=== PATIENT | female | born 1970 | race Caucasian/White ===

== ENCOUNTER 2016-08-01 10:15 | Emergency (ER) | payer SELFPAY ==
[~2016-08-01] VITALS: Ht 165.1 cm; Wt 58.0 kg
[~2016-08-01 10:15] MED LIST: ACYC400T PO; FLUO20TA20 PO; GLUCTES27 XX; PROZ20CA11 PO; SERO100T PO
[2016-08-01 10:17] VITALS: BP 174/99; PULSE 106; RESP 17; TEMP 97.7; O2SAT 95
--- NOTE | 2016-08-01 10:30 | PD ---
HPI Chief Complaint: Psychiatric Symptoms Time Seen by Provider: 10:24 Travel History International Travel<30 days: No Contact w/Intl Traveler<30days: No Traveled to known affect area: No History of Present Illness HPI 45-year-old female with reported history of PTSD, anxiety, depression, here for evaluation voluntarily for suicidal ideation. The patient reports that she is supposed to be on Seroquel and a few other medications, however she has not been on these medications for over a year. She admits to drinking a small amount of alcohol, smoking a small amount of marijuana, and smoking a small amount of crack. No IVDU. No physical complaints. She does not have an actual suicide plan. PFSH Past Medical History Arthritis: Yes (KNEES & HIPS) Asthma: No Autoimmune Disease: No Blood Disorders: No Anxiety: Yes Depression: Yes Heart Rhythm Problems: No (Stress test @ 40 yo found no problems) Cancer: No Cardiovascular Problems: No High Cholesterol: No Chemotherapy: No Chest Pain: No Congestive Heart Failure: No COPD: No Cerebrovascular Accident: No Diabetes: No Diminished Hearing: No Endocrine: No Gastrointestinal Disorders: Yes GERD: No Glaucoma: No Genitourinary: No Headaches: No Hepatitis: Yes (HEP C) Hiatal Hernia: No Immune Disorder: No Kidney Stones: No Musculoskeletal: Yes Neurologic: Yes Psychiatric: Yes Reproductive: No Respiratory: No Migraines: No Myocardial Infarction: No Radiation Therapy: No Renal Failure: No Seizures: No Sickle Cell Disease: No Sleep Apnea: No Thyroid Disease: No Ulcer: No : 2 Para: 2 Past Surgical History Abdominal Surgery: No AICD: No Appendectomy: No Arteriovenous Shunt: No Body Medical Devices: POSSIBLY MYRINGOTOMY TUBE LEFT EAR Cardiac Surgery: No Cholecystectomy: No Ear Surgery: Yes (PATRICIA. MYRINGOTOMY WITH TUBES) Endocrine Surgery: No Eye Surgery: No Genitourinary Surgery: Yes (I & D BUTTOCKS ABCESS--MRSA) Gynecologic Surgery: No Insulin Pump: No Joint Replacement: No Neurologic Surgery: No Oral Surgery: Yes (ADNOIDECTOMY) Pacemaker: No Thoracic Surgery: No Other Surgery: Yes (ADNOIDS AND TUBES IN EARS) Social History Alcohol Use: Yes (4 beers per day) Tobacco Use: Yes (05/03 ppd) Substance Use: Yes Allergies-Medications (Allergen,Severity, Reaction): Coded Allergies: Amoxicillin (Verified Allergy, Severe, RASH, 08/01/16) Reported Meds & Prescriptions Reported Meds & Active Scripts Active Acyclovir 400 mg (Acyclovir) 400 Mg Tab 1 Tab PO BID Reported Prozac (Fluoxetine HCl) 20 Mg Cap 20 Mg PO DAILY Seroquel 100 mg (Quetiapine Fumarate) 100 Mg Tab 50 Mg PO DAILY Fluoxetine Hcl (Fluoxetine HCl) 20MG Cap 20 Mg PO DAILY Review of Systems Except as stated in HPI: all other systems reviewed are Neg Physical Exam Narrative GENERAL: Well-developed, underweight, awake, alert, no acute distress. SKIN: Focused skin assessment warm/dry. HEAD: Atraumatic. Normocephalic. EYES: Pupils equal and round. No scleral icterus. No injection or drainage. ENT: Mucous membranes pink and dry. NECK: Trachea midline. No JVD. No nuchal rigidity. CARDIOVASCULAR: Regular rate and rhythm. RESPIRATORY: No accessory muscle use. Clear to auscultation. Breath sounds equal bilaterally. GASTROINTESTINAL: Abdomen soft, non-tender, nondistended. MUSCULOSKELETAL: No obvious deformities. No clubbing. No cyanosis. No edema. NEUROLOGICAL: Awake and alert. No obvious cranial nerve deficits. Motor grossly within normal limits. Normal speech. PSYCHIATRIC: Pressured speech. Data Data Last Documented VS Vital Signs Date Time Temp Pulse Resp B/P Pulse Ox O2 Delivery O2 Flow Rate FiO2 08/01/16 10:31 99.3 76 18 146/72 97 Orders Complete Blood Count With Diff (08/01/16 10:34) Comprehensive Metabolic Panel (08/01/16 10:34) Urinalysis - C+S If Indicated (08/01/16 10:34) Psych Screen (08/01/16 10:34) Drug Screen, Random Urine (08/01/16 10:34) Alcohol (Ethanol) (08/01/16 10:34) Salicylates (Aspirin) (08/01/16 10:34) Tylenol (Acetaminophen) (08/01/16 10:34) Diet Regular Basic (08/01/16 Lunch) Labs Laboratory Tests Test 08/01/16 08/01/16 10:55 11:15 White Blood Count 4.4 TH/MM3 Red Blood Count 3.66 MIL/MM3 Hemoglobin 11.8 GM/DL Hematocrit 34.4 % Mean Corpuscular Volume 93.9 FL Mean Corpuscular Hemoglobin 32.4 PG Mean Corpuscular Hemoglobin 34.5 % Concent Red Cell Distribution Width 13.0 % Platelet Count 52 TH/MM3 Mean Platelet Volume 10.1 FL Neutrophils (%) (Auto) 48.5 % Lymphocytes (%) (Auto) 36.6 % Monocytes (%) (Auto) 12.2 % Eosinophils (%) (Auto) 1.8 % Basophils (%) (Auto) 0.9 % Neutrophils # (Auto) 2.1 TH/MM3 Lymphocytes # (Auto) 1.6 TH/MM3 Monocytes # (Auto) 0.5 TH/MM3 Eosinophils # (Auto) 0.1 TH/MM3 Basophils # (Auto) 0.0 TH/MM3 CBC Comment AUTO DIFF Differential Comment AUTO DIFF CONFIRMED Platelet Estimate LOW Platelet Morphology Comment NORMAL Sodium Level 138 MEQ/L Potassium Level 3.5 MEQ/L Chloride Level 105 MEQ/L Carbon Dioxide Level 24.6 MEQ/L Anion Gap 8 MEQ/L Blood Urea Nitrogen 7 MG/DL Creatinine 0.59 MG/DL Estimat Glomerular Filtration 109 ML/MIN Rate Random Glucose 86 MG/DL Calcium Level 8.4 MG/DL Total Bilirubin 2.2 MG/DL Aspartate Amino Transf 320 U/L (AST/SGOT) Alanine Aminotransferase 91 U/L (ALT/SGPT) Alkaline Phosphatase 87 U/L Total Protein 8.1 GM/DL Albumin 3.1 GM/DL Salicylates Level LESS THAN 1.7 MG/DL Acetaminophen Level LESS THAN 2.0 MCG/ML Ethyl Alcohol Level LESS THAN 3 MG/DL Urine Color DARK-YELLOW Urine Turbidity HAZY Urine pH 5.5 Urine Specific [place] 1.024 Urine Protein 30 mg/dL Urine Glucose (UA) NEG mg/dL Urine Ketones 10 mg/dL Urine Occult Blood NEG Urine Nitrite NEG Urine Bilirubin NEG Urine Urobilinogen GREATER THAN 12.0 MG/DL Urine Leukocyte Esterase LARGE Urine RBC 2 /hpf Urine WBC 4 /hpf Urine Squamous Epithelial 4 /hpf Cells Urine Bacteria FEW /hpf Urine Granular Casts 7 /lpf Urine Mucus FEW /lpf Microscopic Urinalysis Comment CULT NOT INDICATED MDM Medical Decision Making Medical Screen Exam Complete: Yes Emergency Medical Condition: Yes Differential Diagnosis Acute psychosis, suicidal ideation, drug induced mood disorder Narrative Course Although the patient presented to the emergency department voluntarily, I have placed her under a Gran[place] Act as I deemed the patient to be unsafe to leave the hospital at this time. She is amenable to this. She understands the circumstances of a Granados act. Vital signs reviewed. CBC shows to be BC 4.4, hemoglobin 11.8, hematocrit 34.4, platelets 52. Thrombocytopenia is likely secondary to alcohol abuse. CMP is remarkable for TB bili 2.2, AST 320, ALT 91 which again is likely secondary to alcohol abuse. Urine shows dark/hazy urine, 30 protein, 10 ketones, greater than 12 urobilinogen, large leukocyte esterase, few bacteria, negative nitrites, not suggestive of UTI. Tylenol, alcohol, and salicylate levels are negative. The patient is medically cleared for psychiatric evaluation and disposition by them. Diagnosis Primary Impression: Suicidal ideation Additional Impressions: Thrombocytopenia Transaminitis Ilya Veras MD Aug 01, 2016 10:30 Ilya Veras MD Aug 01, 2016 10:30
[2016-08-01 10:31] VITALS: BP 146/72; PULSE 76; RESP 18; TEMP 99.3; O2SAT 97
[2016-08-01 11:14] LABS: AUTOMATED NEUTROPHIL # 2.1 TH/MM3 (1.8-7.7); BASOPHIL % 0.9 % (0.0-2.0); EOSINOPHIL # 0.1 TH/MM3 (0-0.4); EOSINOPHIL % 1.8 % (0.0-4.0); HEMATOCRIT 34.4 % (35.0-46.0); LYMPH % 36.6 % (9.0-44.0); LYMPHOCYTE # 1.6 TH/MM3 (1.0-4.8); MEAN CELL VOLUME 93.9 FL (80.0-100.0); MEAN CORPUSCULAR HEMOGLOBIN 32.4 PG (27.0-34.0); MEAN CORPUSCULAR HGB CONC 34.5 % (32.0-36.0); MONO % 12.2 % (0.0-8.0); NEUT % 48.5 % (16.0-70.0); PLATELET COUNT 52 TH/MM3 (150-450); RED BLOOD COUNT 3.66 MIL/MM3 (4.00-5.30); WHITE BLOOD COUNT 4.4 TH/MM3 (4.0-11.0)
[2016-08-01 11:18] LABS: HEMO FLAGS AUTO DIFF
[2016-08-01 11:36] LABS: BACTERIA, URINE FEW /hpf; BLOOD, URINE NEG (NEG); COMMENT (UR) CULT NOT INDICATED; CULTURE IF INDICATED CULT NOT INDICATED; GLUCOSE,URINE NEG (NEG); GRANULAR CAST, URINE 7 /lpf; KETONE, URINE 10 mg/dL (NEG); MUCUS URINE FEW /lpf (OCC); NITRITE,URINE NEG (NEG); PH, URINE 5.5 (5.0-8.5); SQUAMOUS EPITHELIAL CELL URINE 4 /hpf (0-5); URINE COLOR DARK-YELLOW (YELLW/STRAW)
[2016-08-01 11:37] LABS: ALT (GPT) 91 U/L (10-53); ANION GAP 8 MEQ/L (5-15); AST (GOT) 320 U/L (15-37); BICARBONATE 24.6 MEQ/L (21.0-32.0); BLOOD UREA NITROGEN 7 MG/DL (7-18); CHLORIDE 105 MEQ/L (98-107); GLOMERULAR FILTRATION RATE 109 ML/MIN (>89); POTASSIUM 3.5 MEQ/L (3.5-5.1); SODIUM (NA) 138 MEQ/L (136-145)
[2016-08-01 11:43] LABS: ACETAMINOPHEN LESS THAN 2.0 MCG/ML (10.0-30.0); ALKALINE PHOSPHATASE 87 U/L (45-117); TOTAL BILIRUBIN ADULT 2.2 MG/DL (0.2-1.0)
[2016-08-01 11:44] LABS: PLATELET ESTIMATE SMEAR LOW (NORMAL); PLATELET MORPHOLOGY NORMAL (NORMAL); SCAN/DIFF AUTO DIFF CONFIRMED
[2016-08-01 11:53] LABS: AMPHETAMINE, URINE NEG (NEG); BARBITURATES, URINE NEG (NEG); COCAINE, URINE POS (NEG)
[2016-08-02] MEDS ORDERED: ACETAMINOPHEN 500 MG CPLT PO ONE
[2016-08-02 00:56] VITALS: BP 166/88; PULSE 85; RESP 16; O2SAT 96
[2016-08-02 09:30] VITALS: BP 127/73; PULSE 69; RESP 18; TEMP 98.3; O2SAT 95
[2016-08-02 11:48] VITALS: BP 127/73; PULSE 69; RESP 18; O2SAT 95
[2016-08-02] MEDS ORDERED: IBUPROFEN 800 MG TAB PO ONE (12:00)
--- NOTE | 2016-08-02 14:20 | PD ---
History of Present Illness Chief Complaint: Psychiatric Symptoms Time Seen by Provider: 12:30 Travel History International Travel<30 Days: No Contact w/Intl Traveler<30days: No Known affected area: No Legal Status Legal Status: Gran[place] Act Gran[place] Act Signed By: DR YEH History of Present Illness: This is a 45-year-old female who was abusing illicit drugs yesterday and was sitting on a bridge. She was [place] acted for reported suicidal ideation and plan. At the present time the patient is calm and pleasant and cooperative. She does admit to cocaine use and marijuana use. She denies any recent heroin use. She does admit to sitting on the bridge but denies being suicidal. Certainly at this time she denies any suicidal ideation, homicidal ideation, psychotic symptoms, cognitive impairments, etc. She is calm and cooperative. She would like to return home and verbally contracts for safety. She does not meet Granados act criteria any longer and she does not meet inpatient psychiatric criteria. PFSH Past Medical History Arthritis: Yes (KNEES & HIPS) Asthma: No Autoimmune Disease: No Blood Disorders: No Anxiety: Yes Depression: Yes Cancer: No Cardiovascular Problems: No High Cholesterol: No Chemotherapy: No Chest Pain: No Congestive Heart Failure: No COPD: No Cerebrovascular Accident: No Diabetes: No Diminished Hearing: No Endocrine: No Gastrointestinal Disorders: Yes GERD: No Glaucoma: No Genitourinary: No Headaches: No Hepatitis: Yes (HEP C) Hiatal Hernia: No Immune Disorder: No Implanted Vascular Access Dvce: Yes Kidney Stones: No Musculoskeletal: Yes Neurologic: Yes Psychiatric: Yes (PTSD) Reproductive: No Respiratory: No Migraines: No Myocardial Infarction: No Radiation Therapy: No Renal Failure: No Seizures: No Sickle Cell Disease: No Sleep Apnea: No Thyroid Disease: No Ulcer: No Tetanus Vaccination: Unknown Influenza Vaccination: No ?: Not : 2 Para: 1 Miscarriage: 1 Past Surgical History Abdominal Surgery: No AICD: No Appendectomy: No Body Medical Devices: POSSIBLY MYRINGOTOMY TUBE LEFT EAR Cardiac Surgery: No Cholecystectomy: No Ear Surgery: Yes (PATRICIA. MYRINGOTOMY WITH TUBES) Endocrine Surgery: No Eye Surgery: No Genitourinary Surgery: Yes (I & D BUTTOCKS ABCESS--MRSA) Gynecologic Surgery: No Insulin Pump: No Joint Replacement: No Neurologic Surgery: No Oral Surgery: Yes (ADNOIDECTOMY) Pacemaker: No Thoracic Surgery: No Tonsillectomy: Yes Other Surgery: Yes (ADNOIDS AND TUBES IN EARS) Psychiatric History Psychiatric History Hx Psychiatric Treatment: HX OF ANXIETY, DEPRESSION, PTSD AND MULTIPLE PERSONALITY D/O History of Inpatient Treatment: Yes Social History Hx Alcohol Use: Yes (4 beers per day, ) Hx Tobacco Use: Yes (/ ppd) Hx Substance Use: Yes (coccaine, marijuana) Substance Use Type: Alcohol, Crack, Marijuana, Benzos (Valium,Xanax), Cocaine Hx of Substance Use Treatment: Yes Allergies-Medications (Allergen,Severity, Reaction): Coded Allergies: Amoxicillin (Verified Allergy, Severe, RASH, 08/01/16) Reported Meds & Prescriptions Reported Meds & Active Scripts Active Acyclovir 400 mg (Acyclovir) 400 Mg Tab 1 Tab PO BID Reported Prozac (Fluoxetine HCl) 20 Mg Cap 20 Mg PO DAILY Seroquel 100 mg (Quetiapine Fumarate) 100 Mg Tab 50 Mg PO DAILY Fluoxetine Hcl (Fluoxetine HCl) 20MG Cap 20 Mg PO DAILY Review of Systems ROS Limitations: Clinical Condition Except as stated in HPI: all other systems reviewed are Neg Exam Exam Limitations: Clinical Condition Alert: Yes [place]: Person, Place, Date, Situation Mood: Calm Affect: Appropriate Speech: Clear, Logical Eye Contact: Normal Memory Intact: Immediate, Recent, Remote Insight/Judgement Impaired but adequate MDM Medical Decision Making Medical Record Reviewed: Yes Assessment/Plan Patient being discharged home. Roberta boyd lifted. Follow up is [facility] at [facility]. Orders Acetaminophen (Tylenol) (08/02/16 00:00) Ibuprofen (Motrin) (08/02/16 12:00) Results Vital Signs Date Time Temp Pulse Resp B/P Pulse Ox O2 Delivery O2 Flow Rate FiO2 08/02/16 11:48 69 18 127/73 95 Room Air 08/02/16 09:30 98.3 69 18 127/73 95 Room Air 08/02/16 00:56 85 16 166/88 96 Diagnosis Primary Impression: Adjustment disorder with mixed disturbance of emotions and con... Additional Impressions: Suicidal ideation Transaminitis Thrombocytopenia Referrals: [facility] (Out patient) as needed [facility] as needed Mental Health and Substance Abuse Departure Forms: Tests/Procedures Patient Instructions: General Instructions, Mood Disorders (ED), Medical Clearance for Psychiatric Care (ED) Additional Instructions: DX: Adjustment Disorder with Mixed Disturbance of Emotions and Conduct Please return to ED if symptoms worsen. Disposition: 01 DISCHARGE HOME Condition: Stable Problem Qualifiers Tej Barr MD Aug 02, 2016 14:20
== END 2016-08-02 13:18 | disposition home or self-care (01) ==
LOC: NEPA 10:15 → NEPJ 08-02 13:18
DX: F43.25 Adjustment disorder with mixed disturbance of emotions and conduct (principal); R74.0 Nonspecific elevation of levels of transaminase and lactic acid dehydrogenase [LDH]; D69.6 Thrombocytopenia, unspecified; F43.10 Post-traumatic stress disorder, unspecified; Z79.899 Other long term (current) drug therapy
CPT/HCPCS: 80053; 80307; 81001; 85025; 99285

== ENCOUNTER 2016-10-23 05:37 | Emergency (ER) | payer SELFPAY ==
[~2016-10-23] VITALS: Ht 165.1 cm; Wt 55.0 kg
[~2016-10-23 05:37] MED LIST changes: -GLUCTES27 XX
[2016-10-23 05:39] VITALS: BP 183/110; PULSE 80; RESP 16; TEMP 98.4; O2SAT 98
[2016-10-23] MEDS ORDERED: SODIUM CHLOR 0.9% 1000 ML INJ 1,000 ML IV ONE (06:00)
[2016-10-23] MEDS ORDERED: MORPHINE SULFATE 4 MG/ML INJ IV PUSH ONE (06:00)
[2016-10-23] MEDS ORDERED: ONDANSETRON HCL 4 MG/2 ML VIAL IVP ONE (06:00)
--- NOTE | 2016-10-23 06:01 | PD ---
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 The patient states she had unprotected sex 5 days ago and now pelvic/suprapubic pain. The patient denies any dysuria, frequency, urgency, vaginal discharge, or vaginal bleeding. The patient's last menstrual cycle was 5 years ago. The patient states last time she had similar symptoms she was diagnosed with PID. The patient's last bowel movement was earlier today, normal , denies any history of diverticulitis. She does complain of mild nausea without any vomiting. She denies any history of previous abdominal surgeries. Symptoms are moderate without any alleviating or exacerbating factors. PFSH Past Medical History Arthritis: Yes (KNEES & HIPS) Asthma: No Autoimmune Disease: No Blood Disorders: No Anxiety: Yes Depression: Yes Cancer: No Cardiovascular Problems: No High Cholesterol: No Chemotherapy: No Chest Pain: No Congestive Heart Failure: No COPD: No Cerebrovascular Accident: No Diabetes: No Diminished Hearing: No Endocrine: No Gastrointestinal Disorders: Yes GERD: No Glaucoma: No Genitourinary: No Headaches: No Hepatitis: Yes (HEP C) Hiatal Hernia: No Immune Disorder: No Implanted Vascular Access Dvce: Yes Kidney Stones: No Musculoskeletal: Yes Neurologic: Yes Psychiatric: Yes (PTSD) Reproductive: No Respiratory: No Migraines: No Myocardial Infarction: No Radiation Therapy: No Renal Failure: No Seizures: No Sickle Cell Disease: No Sleep Apnea: No Thyroid Disease: No Ulcer: No ?: Not LMP: IRREG : 2 Para: 1 Miscarriage: 1 Past Surgical History Abdominal Surgery: No AICD: No Appendectomy: No Body Medical Devices: POSSIBLY MYRINGOTOMY TUBE LEFT EAR Cardiac Surgery: No Cholecystectomy: No Ear Surgery: Yes (PATRICIA. MYRINGOTOMY WITH TUBES) Endocrine Surgery: No Eye Surgery: No Genitourinary Surgery: Yes (I & D BUTTOCKS ABCESS--MRSA) Gynecologic Surgery: No Insulin Pump: No Joint Replacement: No Neurologic Surgery: No Oral Surgery: Yes (ADNOIDECTOMY) Pacemaker: No Thoracic Surgery: No Tonsillectomy: Yes Other Surgery: Yes (ADNOIDS AND TUBES IN EARS) Social History Alcohol Use: Yes (4 beers per day, ) Tobacco Use: Yes (1/2 ppd) Substance Use: Yes (coccaine, marijuana) Allergies-Medications (Allergen,Severity, Reaction): Coded Allergies: Amoxicillin (Verified Allergy, Severe, RASH, 10/23/16) Reported Meds & Prescriptions Reported Meds & Active Scripts Active No Active Prescriptions or Reported Medications Review of Systems Except as stated in HPI: all other systems reviewed are Neg General / Constitutional: No: Fever Cardiovascular: No: Chest Pain or Discomfort Respiratory: No: Shortness of Breath Gastrointestinal: Positive: Nausea, Vomiting, No: Diarrhea, Abdominal Pain Genitourinary: Positive: Pelvic Pain, No: Urgency, Frequency, Dysuria, Hematuria, Discharge, Vaginal Bleeding Skin: No Rash, No Itching Physical Exam Narrative GENERAL: Awake, alert, nontoxic-appearing 45 year-old female who appears her stated age and is in no acute respiratory distress. SKIN: Focused skin assessment warm/dry. HEAD: Atraumatic. Normocephalic. EYES: No injection or drainage. ENT: No nasal bleeding or discharge. Mucous membranes pink and moist. NECK: Trachea midline. No JVD. GASTROINTESTINAL: Abdomen soft, mild suprapubic tenderness. No rebound tenderness. Back: No CVA tenderness. Genitourinary: The exam was performed in the presence of a female nurse. External examination reveals no rashes or lesions. Speculum examination reveals scant white discharge in vaginal vault. Cervix is closed. No cervical motion tenderness. No adnexal tenderness. MUSCULOSKELETAL: No obvious deformities. No clubbing. No cyanosis. No edema. NEUROLOGICAL: Awake and alert. No obvious cranial nerve deficits. Motor grossly within normal limits. Normal speech. PSYCHIATRIC: Appropriate mood and affect; insight and judgment normal. Data Data Last Documented VS Vital Signs Date Time Temp Pulse Resp B/P Pulse Ox O2 Delivery O2 Flow Rate FiO2 10/23/16 05:39 98.4 80 16 183/110 98 Room Air Orders Complete Blood Count With Diff (10/23/16 05:55) Comprehensive Metabolic Panel (10/23/16 05:55) Gc And Chlamydia Pcr (10/23/16 05:55) Wet Prep Profile (10/23/16 05:55) Urinalysis - C+S If Indicated (10/23/16 05:55) Ondansetron Inj (Zofran Inj) (10/23/16 06:00) Ed Urine Pregnancytest Poc (10/23/16 05:55) Morphine Inj (Morphine Inj) (10/23/16 06:00) Sodium Chlor 0.9% 1000 Ml Inj (Ns 1000 M (10/23/16 06:00) Ct Abd/Pel W/O Iv Contrast (10/23/16 ) Labs Laboratory Tests Test 10/23/16 10/23/16 10/23/16 06:03 06:05 06:20 White Blood Count 4.1 TH/MM3 Red Blood Count 3.79 MIL/MM3 Hemoglobin 12.1 GM/DL Hematocrit 35.6 % Mean Corpuscular Volume 94.0 FL Mean Corpuscular Hemoglobin 31.9 PG Mean Corpuscular Hemoglobin 34.0 % Concent Red Cell Distribution Width 14.2 % Platelet Count 78 TH/MM3 Mean Platelet Volume 8.7 FL Neutrophils (%) (Auto) 61.0 % Lymphocytes (%) (Auto) 27.2 % Monocytes (%) (Auto) 9.2 % Eosinophils (%) (Auto) 1.7 % Basophils (%) (Auto) 0.9 % Neutrophils # (Auto) 2.5 TH/MM3 Lymphocytes # (Auto) 1.1 TH/MM3 Monocytes # (Auto) 0.4 TH/MM3 Eosinophils # (Auto) 0.1 TH/MM3 Basophils # (Auto) 0.0 TH/MM3 CBC Comment AUTO DIFF Urine Color LIGHT-YELLOW Urine Turbidity CLEAR Urine pH 7.0 Urine Specific [place] 1.003 Urine Protein NEG mg/dL Urine Glucose (UA) NEG mg/dL Urine Ketones NEG mg/dL Urine Occult Blood NEG Urine Nitrite NEG Urine Bilirubin NEG Urine Urobilinogen LESS THAN 2.0 MG/DL Urine Leukocyte Esterase NEG Urine WBC LESS THAN 1 /hpf Urine Squamous Epithelial <1 /hpf Cells Urine Bacteria RARE /hpf Microscopic Urinalysis Comment CULT NOT INDICATED Clue Cells (Wet Prep) NONE SEEN Vaginal Trichomonas (Wet Prep) NONE SEEN Vaginal Yeast (Wet Prep) NONE SEEN MDM Medical Decision Making Medical Screen Exam Complete: Yes Emergency Medical Condition: Yes Medical Record Reviewed: Yes Interpretation(s) Laboratory Tests Test 10/23/16 10/23/16 10/23/16 06:03 06:05 06:20 White Blood Count 4.1 TH/MM3 Red Blood Count 3.79 MIL/MM3 Hemoglobin 12.1 GM/DL Hematocrit 35.6 % Mean Corpuscular Volume 94.0 FL Mean Corpuscular Hemoglobin 31.9 PG Mean Corpuscular Hemoglobin 34.0 % Concent Red Cell Distribution Width 14.2 % Platelet Count 78 TH/MM3 Mean Platelet Volume 8.7 FL Neutrophils (%) (Auto) 61.0 % Lymphocytes (%) (Auto) 27.2 % Monocytes (%) (Auto) 9.2 % Eosinophils (%) (Auto) 1.7 % Basophils (%) (Auto) 0.9 % Neutrophils # (Auto) 2.5 TH/MM3 Lymphocytes # (Auto) 1.1 TH/MM3 Monocytes # (Auto) 0.4 TH/MM3 Eosinophils # (Auto) 0.1 TH/MM3 Basophils # (Auto) 0.0 TH/MM3 CBC Comment AUTO DIFF Urine Color LIGHT-YELLOW Urine Turbidity CLEAR Urine pH 7.0 Urine Specific [place] 1.003 Urine Protein NEG mg/dL Urine Glucose (UA) NEG mg/dL Urine Ketones NEG mg/dL Urine Occult Blood NEG Urine Nitrite NEG Urine Bilirubin NEG Urine Urobilinogen LESS THAN 2.0 MG/DL Urine Leukocyte Esterase NEG Urine WBC LESS THAN 1 /hpf Urine Squamous Epithelial <1 /hpf Cells Urine Bacteria RARE /hpf Microscopic Urinalysis Comment CULT NOT INDICATED Clue Cells (Wet Prep) NONE SEEN Vaginal Trichomonas (Wet Prep) NONE SEEN Vaginal Yeast (Wet Prep) NONE SEEN Differential Diagnosis Differential diagnosis includes UTI, STI, cervicitis, PID, diverticulitis, atypical appendicitis. Narrative Course IV was established, labs were drawn and sent, and the patient was placed on cardiac telemetry monitoring and continuous pulse oximetry monitoring. Bedside UA test was obtained and UA was sent to lab. A pelvic exam was performed in the presence of a female nurse. The patient had a negative UA and negative wet prep, therefore, CT of the abdomen and pelvis was ordered. The patient was signed out at [address] results and lab results pending. Diagnosis Primary Impression: Pelvic pain in female Scripts No Active Prescriptions or Reported Meds Condition: Rolf Buck MD Oct 23, 2016 06:01
[2016-10-23 06:42] LABS: BACTERIA, URINE RARE /hpf; BLOOD, URINE NEG (NEG); COMMENT (UR) CULT NOT INDICATED; CULTURE IF INDICATED CULT NOT INDICATED; GLUCOSE,URINE NEG (NEG); KETONE, URINE NEG (NEG); NITRITE,URINE NEG (NEG); SQUAMOUS EPITHELIAL CELL URINE <1 /hpf (0-5); URINE COLOR LIGHT-YELLOW (YELLW/STRAW)
[2016-10-23 06:44] LABS: AUTOMATED NEUTROPHIL # 2.5 TH/MM3 (1.8-7.7); BASOPHIL % 0.9 % (0.0-2.0); EOSINOPHIL # 0.1 TH/MM3 (0-0.4); EOSINOPHIL % 1.7 % (0.0-4.0); HEMATOCRIT 35.6 % (35.0-46.0); LYMPH % 27.2 % (9.0-44.0); LYMPHOCYTE # 1.1 TH/MM3 (1.0-4.8); MEAN CORPUSCULAR HEMOGLOBIN 31.9 PG (27.0-34.0); MONO % 9.2 % (0.0-8.0); PLATELET COUNT 78 TH/MM3 (150-450); RED BLOOD COUNT 3.79 MIL/MM3 (4.00-5.30); RED CELL DISTRIBUTION WIDTH 14.2 % (11.6-17.2); WHITE BLOOD COUNT 4.1 TH/MM3 (4.0-11.0)
[2016-10-23 06:50] LABS: HEMO FLAGS AUTO DIFF
[2016-10-23 06:56] LABS: ALT (GPT) 40 U/L (10-53); ANION GAP 7 MEQ/L (5-15); AST (GOT) 93 U/L (15-37); BICARBONATE 30.7 MEQ/L (21.0-32.0); CHLORIDE 100 MEQ/L (98-107); GLOMERULAR FILTRATION RATE 135 ML/MIN (>89); SODIUM (NA) 138 MEQ/L (136-145)
[2016-10-23 06:58] LABS: ALKALINE PHOSPHATASE 88 U/L (45-117); BLOOD UREA NITROGEN 3 MG/DL (7-18); TOTAL BILIRUBIN ADULT 1.1 MG/DL (0.2-1.0)
[2016-10-23] MEDS ORDERED: POTASSIUM CHLORIDE 20 MEQ CONTROLLED RELEASE TAB PO ONE (07:15)
[2016-10-23 07:22] LABS: PLATELET ESTIMATE SMEAR LOW (NORMAL)
[2016-10-23 07:23] LABS: PLATELET MORPHOLOGY NORMAL (NORMAL); SCAN/DIFF AUTO DIFF CONFIRMED
--- NOTE | 2016-10-23 07:30 | RADRPT ---
EXAM DATE/TIME: 10/23/2016 07:13 [place] COMPARISON: No previous studies available for comparison. INDICATIONS : Bilateral lower quadrant pain for four days. ORAL CONTRAST: No oral contrast ingested. RADIATION DOSE: 4.56 CTDIvol (mGy) MEDICAL HISTORY : Hepatitis C. ETOH SURGICAL HISTORY : None. ENCOUNTER: Initial ACUITY: 4 - 6 days PAIN SCALE: 5/10 LOCATION: Bilateral lower quadrant TECHNIQUE: Volumetric scanning of the abdomen and pelvis was performed. Using automated exposure control and ad justment of the mA and/or kV according to patient size, radiation dose was kept as low as reasonably achievable to obtain optimal diagnostic quality images. DICOM format image data is available electro nically for review and comparison. The lack of IV contrast limits the diagnosis for certain organ pat hology. FINDINGS: LOWER LUNGS: The visualized lower lungs are clear. LIVER: The liver is mildly enlarged and heterogeneous. No dilated biliary ducts are demonstrated. The gallbl adder is grossly unremarkable. There is no evidence of ascites. SPLEEN: The spleen is diffusely enlarged measuring 16.6 cm. PANCREAS: Within normal limits. KIDNEYS: Normal in size and shape. There is no mass, stone, or hydronephrosis. ADRENAL GLANDS: Within normal limits. VASCULAR: There is no aortic aneurysm. BOWEL/MESENTERY: The stomach, small bowel, and colon demonstrate no acute abnormality. There is no free intraperitone al air or fluid. No inflammatory changes. There is stool throughout the colon. ABDOMINAL WALL: Within normal limits. RETROPERITONEUM: A few nonspecific para-aortic lymph nodes are demonstrated. BLADDER: No wall thickening or mass. No calcifications in the urinary bladder. REPRODUCTIVE: Within normal limits. INGUINAL: There is no lymphadenopathy or hernia. MUSCULOSKELETAL: Within normal limits for patient age. CONCLUSION: 1. Mild hepatomegaly with heterogeneous density suggestive of hepatocellular disease. 2. Moderate splenomegaly 3. A few nonspecific para-aortic lymph nodes 4. No acute abdominal or pelvic pathology. Vince Arrington MD on October 23, 2016 at 7:23 Board Certified Radiologist. This report was verified electronically.
[2016-10-23] MEDS ORDERED: DICY10 PO (08:31)
[2016-10-23] MEDS ORDERED: HYDR-3533 PO (08:31)
--- NOTE | 2016-10-23 08:33 | PD ---
Data Data Last Documented VS Vital Signs Date Time Temp Pulse Resp B/P Pulse Ox O2 Delivery O2 Flow Rate FiO2 10/23/16 05:39 98.4 80 16 183/110 98 Room Air Orders Complete Blood Count With Diff (10/23/16 05:55) Comprehensive Metabolic Panel (10/23/16 05:55) Gc And Chlamydia Pcr (10/23/16 05:55) Wet Prep Profile (10/23/16 05:55) Urinalysis - C+S If Indicated (10/23/16 05:55) Ondansetron Inj (Zofran Inj) (10/23/16 06:00) Ed Urine Pregnancytest Poc (10/23/16 05:55) Morphine Inj (Morphine Inj) (10/23/16 06:00) Sodium Chlor 0.9% 1000 Ml Inj (Ns 1000 M (10/23/16 06:00) Ct Abd/Pel W/O Iv Contrast (10/23/16 ) Potassium Chloride (Kcl) (10/23/16 07:15) Acetamin-Hydrocod 325-5 Mg ([place] 5-325 (10/23/16 08:45) Azithromycin Powd Pack (Zithromax Powd P (10/23/16 10:45) Ceftriaxone Inj (Rocephin Inj) (10/23/16 10:45) Lidocaine 1% Inj (50 Ml) (Xylocaine 1% I (10/23/16 10:45) Labs Laboratory Tests Test 10/23/16 10/23/16 10/23/16 06:03 06:05 06:20 White Blood Count 4.1 TH/MM3 Red Blood Count 3.79 MIL/MM3 Hemoglobin 12.1 GM/DL Hematocrit 35.6 % Mean Corpuscular Volume 94.0 FL Mean Corpuscular Hemoglobin 31.9 PG Mean Corpuscular Hemoglobin 34.0 % Concent Red Cell Distribution Width 14.2 % Platelet Count 78 TH/MM3 Mean Platelet Volume 8.7 FL Neutrophils (%) (Auto) 61.0 % Lymphocytes (%) (Auto) 27.2 % Monocytes (%) (Auto) 9.2 % Eosinophils (%) (Auto) 1.7 % Basophils (%) (Auto) 0.9 % Neutrophils # (Auto) 2.5 TH/MM3 Lymphocytes # (Auto) 1.1 TH/MM3 Monocytes # (Auto) 0.4 TH/MM3 Eosinophils # (Auto) 0.1 TH/MM3 Basophils # (Auto) 0.0 TH/MM3 CBC Comment AUTO DIFF Differential Comment AUTO DIFF CONFIRMED Platelet Estimate LOW Platelet Morphology Comment NORMAL Sodium Level 138 MEQ/L Potassium Level 3.0 MEQ/L Chloride Level 100 MEQ/L Carbon Dioxide Level 30.7 MEQ/L Anion Gap 7 MEQ/L Blood Urea Nitrogen 3 MG/DL Creatinine 0.49 MG/DL Estimat Glomerular Filtration 135 ML/MIN Rate Random Glucose 120 MG/DL Calcium Level 8.2 MG/DL Total Bilirubin 1.1 MG/DL Aspartate Amino Transf 93 U/L (AST/SGOT) Alanine Aminotransferase 40 U/L (ALT/SGPT) Alkaline Phosphatase 88 U/L Total Protein 8.4 GM/DL Albumin 2.7 GM/DL Urine Color LIGHT-YELLOW Urine Turbidity CLEAR Urine pH 7.0 Urine Specific [place] 1.003 Urine Protein NEG mg/dL Urine Glucose (UA) NEG mg/dL Urine Ketones NEG mg/dL Urine Occult Blood NEG Urine Nitrite NEG Urine Bilirubin NEG Urine Urobilinogen LESS THAN 2.0 MG/DL Urine Leukocyte Esterase NEG Urine WBC LESS THAN 1 /hpf Urine Squamous Epithelial <1 /hpf Cells Urine Bacteria RARE /hpf Microscopic Urinalysis Comment CULT NOT INDICATED Clue Cells (Wet Prep) NONE SEEN Vaginal Trichomonas (Wet Prep) NONE SEEN Vaginal Yeast (Wet Prep) NONE SEEN Chlamydia trachomatis DNA DETECTED (PCR) Neisseria gonorrhoeae DNA NOT DETECTED (PCR) [facility] Medical Record Reviewed: Yes Supervised Visit with SEYMOUR: No Narrative Course CBC & BMP Diagram 10/23/16 06:03 AST 93 ALT 40 Albumin 2.7 UA: no UTI Wet prep: negative x 3 Last 24 hours Impressions Abdomen/Pelvis CT 10/23/16 0000 Signed Impressions: Service Date/Time: Sunday, October 23, 2016 07:13 - CONCLUSION: 1. Mild hepatomegaly with heterogeneous density suggestive of hepatocellular disease. 2. Moderate splenomegaly 3. A few nonspecific para-aortic lymph nodes 4. No acute abdominal or pelvic pathology. Vince Arrington MD Workup discussed in detail with patient at time of reassessment. Return precautions discussed. The serology test was positive for chlamydia. The patient was called at 9:45 AM ; she returned to the ER and was treated empirically at 1050AM. Diagnosis Primary Impression: Pelvic pain in female Additional Impression: Chlamydia Referrals: [facility] 2 days Additional Instruction: You have a choice when it comes to health care, and we are glad that you chose [facility]. Hopefully, we have met your expectations on today's visit. You are welcome to return to [facility] at any time, as we are committed to meeting the health care needs of our community. Med/Other Pt SpecificInfo: Prescription(s) given Scripts Dicyclomine (Bentyl)10 Mg Cap10 Mg PO TID PRN (Bowel Management) #10 CAP Ref 0 Prov:Breezy Carver MD 10/23/16 Hydrocodone-Acetaminophen (Lortab)5-325 Mg Tab1-2 Tab PO Q6H PRN (PAIN SCALE 6 TO 10) #12 TAB Ref 0 Prov:Breezy Carver MD 10/23/16 Disposition: 01 DISCHARGE HOME Condition: Stable Breezy Carver MD Oct 23, 2016 08:33
[2016-10-23] MEDS ORDERED: ACETAMINOPHEN/HYDROcodone 325 MG/5 MG TAB PO ONE (08:45)
--- NOTE | 2016-10-23 08:51 | PD ---
Data Data Last Documented VS Vital Signs Date Time Temp Pulse Resp B/P Pulse Ox O2 Delivery O2 Flow Rate FiO2 10/23/16 05:39 98.4 80 16 183/110 98 Room Air Orders Complete Blood Count With Diff (10/23/16 05:55) Comprehensive Metabolic Panel (10/23/16 05:55) Gc And Chlamydia Pcr (10/23/16 05:55) Wet Prep Profile (10/23/16 05:55) Urinalysis - C+S If Indicated (10/23/16 05:55) Ondansetron Inj (Zofran Inj) (10/23/16 06:00) Ed Urine Pregnancytest Poc (10/23/16 05:55) Morphine Inj (Morphine Inj) (10/23/16 06:00) Sodium Chlor 0.9% 1000 Ml Inj (Ns 1000 M (10/23/16 06:00) Ct Abd/Pel W/O Iv Contrast (10/23/16 ) Potassium Chloride (Kcl) (10/23/16 07:15) Acetamin-Hydrocod 325-5 Mg ([place] 5-325 (10/23/16 08:45) Labs Laboratory Tests Test 10/23/16 10/23/16 10/23/16 06:03 06:05 06:20 White Blood Count 4.1 TH/MM3 Red Blood Count 3.79 MIL/MM3 Hemoglobin 12.1 GM/DL Hematocrit 35.6 % Mean Corpuscular Volume 94.0 FL Mean Corpuscular Hemoglobin 31.9 PG Mean Corpuscular Hemoglobin 34.0 % Concent Red Cell Distribution Width 14.2 % Platelet Count 78 TH/MM3 Mean Platelet Volume 8.7 FL Neutrophils (%) (Auto) 61.0 % Lymphocytes (%) (Auto) 27.2 % Monocytes (%) (Auto) 9.2 % Eosinophils (%) (Auto) 1.7 % Basophils (%) (Auto) 0.9 % Neutrophils # (Auto) 2.5 TH/MM3 Lymphocytes # (Auto) 1.1 TH/MM3 Monocytes # (Auto) 0.4 TH/MM3 Eosinophils # (Auto) 0.1 TH/MM3 Basophils # (Auto) 0.0 TH/MM3 CBC Comment AUTO DIFF Differential Comment AUTO DIFF CONFIRMED Platelet Estimate LOW Platelet Morphology Comment NORMAL Sodium Level 138 MEQ/L Potassium Level 3.0 MEQ/L Chloride Level 100 MEQ/L Carbon Dioxide Level 30.7 MEQ/L Anion Gap 7 MEQ/L Blood Urea Nitrogen 3 MG/DL Creatinine 0.49 MG/DL Estimat Glomerular Filtration 135 ML/MIN Rate Random Glucose 120 MG/DL Calcium Level 8.2 MG/DL Total Bilirubin 1.1 MG/DL Aspartate Amino Transf 93 U/L (AST/SGOT) Alanine Aminotransferase 40 U/L (ALT/SGPT) Alkaline Phosphatase 88 U/L Total Protein 8.4 GM/DL Albumin 2.7 GM/DL Urine Color LIGHT-YELLOW Urine Turbidity CLEAR Urine pH 7.0 Urine Specific [place] 1.003 Urine Protein NEG mg/dL Urine Glucose (UA) NEG mg/dL Urine Ketones NEG mg/dL Urine Occult Blood NEG Urine Nitrite NEG Urine Bilirubin NEG Urine Urobilinogen LESS THAN 2.0 MG/DL Urine Leukocyte Esterase NEG Urine WBC LESS THAN 1 /hpf Urine Squamous Epithelial <1 /hpf Cells Urine Bacteria RARE /hpf Microscopic Urinalysis Comment CULT NOT INDICATED Clue Cells (Wet Prep) NONE SEEN Vaginal Trichomonas (Wet Prep) NONE SEEN Vaginal Yeast (Wet Prep) NONE SEEN Chlamydia trachomatis DNA DETECTED (PCR) Neisseria gonorrhoeae DNA NOT DETECTED (PCR) MDM Medical Record Reviewed: Yes Supervised Visit with SEYMOUR: No Narrative Course This report is in ERROR Please disregard this report and all prior copies ! This report is in ERROR Please disregard this report and all prior copies ! This report is in ERROR Please disregard this report and all prior copies ! Diagnosis Primary Impression: Pelvic pain in female Referrals: [facility] 2 days Patient Instructions: General Instructions, Narcotic given in the ED, Pelvic Pain in Women (ED) Departure Forms: Tests/Procedures Additional Instruction: You have a choice when it comes to health care, and we are glad that you chose [facility]. Hopefully, we have met your expectations on today's visit. You are welcome to return to [facility] at any time, as we are committed to meeting the health care needs of our community. Scripts Dicyclomine (Bentyl)10 Mg Cap10 Mg PO TID PRN (Bowel Management) #10 CAP Ref 0 Prov:Breezy Carver MD 10/23/16 Hydrocodone-Acetaminophen (Lortab)5-325 Mg Tab1-2 Tab PO Q6H PRN (PAIN SCALE 6 TO 10) #12 TAB Ref 0 Prov:Breezy Carver MD 10/23/16 Breezy Carver MD Oct 23, 2016 08:51
[2016-10-23 09:17] LABS: CHLAMYDIA PCR DETECTED (NOT DETECT); NEISSERIA PCR NOT DETECTED (NOT DETECT)
[2016-10-23] MEDS ORDERED: cefTRIAXone 250 MG VIAL IM ONE (10:45)
[2016-10-23] MEDS ORDERED: AZITHROMYCIN PWD FOR SUSP 1 GM PACKET PO ONE (10:45)
[2016-10-23] MEDS ORDERED: LIDOCAINE HCL 1% 50 ML VIAL IM ONE (10:45)
== END 2016-10-23 08:53 | disposition home or self-care (01) ==
LOC: NEPE 05:37
DX: R10.2 Pelvic and perineal pain (principal); A74.9 Chlamydial infection, unspecified; R16.0 Hepatomegaly, not elsewhere classified; R16.1 Splenomegaly, not elsewhere classified; R11.2 Nausea with vomiting, unspecified; F41.9 Anxiety disorder, unspecified; F43.10 Post-traumatic stress disorder, unspecified; B19.20 Unspecified viral hepatitis C without hepatic coma; F17.200 Nicotine dependence, unspecified, uncomplicated
CPT/HCPCS: 74176; 80053; 81001; 84703; 85025; 87210; 87491; 87591; 96361; 96374; 96375; 99285; J0696; J2270; J2405; J7030

== ENCOUNTER 2016-10-23 10:03 | Emergency (ER) | payer SELFPAY ==
[~2016-10-23 10:03] MED LIST changes: +DICY10 PO; +HYDR-3533 PO
[2016-10-23 10:05] VITALS: BP 174/86; PULSE 82; RESP 16; TEMP 98.2; O2SAT 98
== END 2016-10-23 10:56 | disposition left against medical advice (07) ==
LOC: NEPE 10:03
DX: R78.9 Finding of unspecified substance, not normally found in blood (principal); Z53.21 Procedure and treatment not carried out due to patient leaving prior to being seen by health care provider
CPT/HCPCS: 99281

== ENCOUNTER 2017-06-06 15:21 | Inpatient (IN) | payer SELFPAY ==
[~2017-06-06] VITALS: Ht 162.6 cm; Wt 65.3 kg
[~2017-06-06 15:21] MED LIST changes: -ACYC400T PO; -FLUO20TA20 PO; -PROZ20CA11 PO; -SERO100T PO
[2017-06-06 15:30] VITALS: BP 121/79; PULSE 119; RESP 17; TEMP 98.8; O2SAT 98
[2017-06-06 17:19] LABS: BILIRUBIN, URINE NEG (NEG); BLOOD, URINE NEG (NEG); GLUCOSE,URINE NEG (NEG); KETONE, URINE 10 mg/dL (NEG); MUCUS URINE FEW /lpf (OCC); NITRITE,URINE NEG (NEG); PH, URINE 5.5 (5.0-8.5); SQUAMOUS EPITHELIAL CELL URINE 5 /hpf (0-5); URINE COLOR YELLOW (YELLW/STRAW); URINE LEUKOCYTE ESTERASE TRACE (NEG)
[2017-06-06 17:19] LABS: AUTOMATED NEUTROPHIL # 4.4 TH/MM3 (1.8-7.7); BASOPHIL # 0.1 TH/MM3 (0-0.2); BASOPHIL % 0.9 % (0.0-2.0); EOSINOPHIL % 0.4 % (0.0-4.0); HEMATOCRIT 32.1 % (35.0-46.0); HEMOGLOBIN 11.2 GM/DL (11.6-15.3); LYMPH % 38.3 % (9.0-44.0); LYMPHOCYTE # 3.2 TH/MM3 (1.0-4.8); MEAN CORPUSCULAR HEMOGLOBIN 34.2 PG (27.0-34.0); MEAN CORPUSCULAR HGB CONC 34.9 % (32.0-36.0); MEAN PLATELET VOLUME 9.2 FL (7.0-11.0); MONO % 8.6 % (0.0-8.0); MONOCYTE # 0.7 TH/MM3 (0-0.9); NEUT % 51.8 % (16.0-70.0); PLATELET COUNT 92 TH/MM3 (150-450); RED BLOOD COUNT 3.28 MIL/MM3 (4.00-5.30); RED CELL DISTRIBUTION WIDTH 14.4 % (11.6-17.2); WHITE BLOOD COUNT 8.5 TH/MM3 (4.0-11.0)
[2017-06-06 17:27] LABS: INTERNATIONAL NORMALIZED RATIO 1.3 RATIO; PROTHROMBIN TIME - PATIENT 13.3 SEC (9.8-11.6)
[2017-06-06 17:42] LABS: ALBUMIN 2.8 GM/DL (3.4-5.0); ALT (GPT) 33 U/L (10-53); AST (GOT) 74 U/L (15-37); BICARBONATE 26.4 MEQ/L (21.0-32.0); BLOOD UREA NITROGEN 21 MG/DL (7-18); CALCIUM 8.3 MG/DL (8.5-10.1); CHLORIDE 105 MEQ/L (98-107); CREATININE 0.57 MG/DL (0.50-1.00); GLOMERULAR FILTRATION RATE 113 ML/MIN (>89); GLUCOSE,RANDOM 87 MG/DL (74-106); SODIUM (NA) 141 MEQ/L (136-145)
[2017-06-06 17:45] LABS: ALKALINE PHOSPHATASE 95 U/L (45-117); TOTAL BILIRUBIN ADULT 1.4 MG/DL (0.2-1.0); TOTAL PROTEIN 7.4 GM/DL (6.4-8.2)
[2017-06-06 17:53] VITALS: RESP 15; O2SAT 98
[2017-06-06] MEDS: OCTREOTIDE INJ 500 MCG in SODIUM CHLORID 0.9% 500 ML INJ 499.5 ML IV SCH (18:23)
[2017-06-06] MEDS ORDERED: OCTREOTIDE INJ 50 MCG/ML AMP IV PUSH ONE (18:30)
[2017-06-06 18:33] VITALS: BP 111/59; PULSE 111; RESP 16; O2SAT 98
[2017-06-06] MEDS ORDERED: SODIUM CHLOR 0.9% 1000 ML INJ 1,000 ML IV ONE (18:45)
[2017-06-06] MEDS ORDERED: BISACODYL 10 MG SUPP RECTAL PRN (18:45)
[2017-06-06] MEDS ORDERED: PHYTONADIONE 5 MG TAB PO ONE (18:45)
[2017-06-06] MEDS ORDERED: SODIUM CHLORIDE 0.9% FLUSH 10 ML FLUSH IV FLUSH PRN (18:45)
[2017-06-06] MEDS ORDERED: SENNOSIDES 8.6 MG TAB PO PRN (18:45)
[2017-06-06] MEDS ORDERED: MAGNESIUM HYDROXIDE SUSP 30 ML CUP PO PRN (18:45)
[2017-06-06] MEDS ORDERED: LACTULOSE SYRUP 20 GM/30 ML CUP PO PRN (18:45)
[2017-06-06] MEDS ORDERED: NALOXONE HCL 0.4 MG/ML AMP IV PUSH PRN ×2 (18:45)
[2017-06-06] MEDS ORDERED: PANTOPRAZOLE SODIUM 40 MG VIAL IV PUSH ONE (18:45)
--- NOTE | 2017-06-06 18:54 | PD ---
HPI Chief Complaint: GI Complaint Time Seen by Provider: 17:20 Travel History International Travel<30 days: No Contact w/Intl Traveler<30days: No Traveled to known affect area: No History of Present Illness HPI This is a 46-year-old female with a history of cirrhosis, presents here today with complaint of vomiting dark blood and tarry stools 2-3 days. Patient also reports weakness. She states that she has had previous upper GI bleeds in the past. She states that she was seen at [facility] in [place] for similar thing in November. She is unsure what they did. She is not sure why she has the bleeding but thinks it may be related to her cirrhosis. When asked if she has varices, patient was unable to answer that question and did not know if this is what she had been previously diagnosed with. There are no other complaints at this time of my examination. PFSH Past Medical History Arthritis: Yes Asthma: No Autoimmune Disease: No Blood Disorders: No Anxiety: Yes Depression: Yes Cancer: No Cardiovascular Problems: No High Cholesterol: No Chemotherapy: No Chest Pain: No Congestive Heart Failure: No COPD: No Cerebrovascular Accident: No Diabetes: No Diminished Hearing: No Endocrine: No Gastrointestinal Disorders: Yes GERD: No Glaucoma: No Genitourinary: No Headaches: No Hepatitis: Yes (HEP C) Hiatal Hernia: No Heparin Induced Thrombocytopen: No Immune Disorder: No Implanted Vascular Access Dvce: Yes Kidney Stones: No Musculoskeletal: Yes Neurologic: Yes Psychiatric: Yes (PTSD) Reproductive: No Respiratory: No Migraines: No Myocardial Infarction: No Radiation Therapy: No Renal Failure: No Seizures: No Sickle Cell Disease: No Sleep Apnea: No Thyroid Disease: No Ulcer: No ?: Not : 2 Para: 1 Miscarriage: 1 Past Surgical History Abdominal Surgery: No AICD: No Appendectomy: No Body Medical Devices: POSSIBLY MYRINGOTOMY TUBE LEFT EAR Cardiac Surgery: No Cholecystectomy: No Ear Surgery: Yes (PATRICIA. MYRINGOTOMY WITH TUBES) Endocrine Surgery: No Eye Surgery: No Genitourinary Surgery: Yes (I & D BUTTOCKS ABCESS--MRSA) Gynecologic Surgery: No Insulin Pump: No Joint Replacement: No Neurologic Surgery: No Oral Surgery: Yes Pacemaker: No Thoracic Surgery: No Tonsillectomy: Yes Other Surgery: Yes (ADNOIDS AND TUBES IN EARS) Social History Alcohol Use: Yes (4 beers per day, ) Tobacco Use: Yes (1/2 ppd) Substance Use: Yes (coccaine, marijuana) Allergies-Medications (Allergen,Severity, Reaction): Coded Allergies: amoxicillin (Unverified Allergy, Severe, RASH, 12/14/16) Reported Meds & Prescriptions Reported Meds & Active Scripts Active Bentyl (Dicyclomine HCl) 10 Mg Cap 10 Mg PO TID PRN Lortab (Hydrocodone-Acetaminophen) 5-325 Mg Tab 1-2 Tab PO Q6H PRN Review of Systems Except as stated in HPI: all other systems reviewed are Neg General / Constitutional: No: Fever, Chills HENT: Positive: Lightheadedness, No: Headaches, Neck Pain Cardiovascular: No: Chest Pain or Discomfort, Palpitations Respiratory: No: Cough, Shortness of Breath Gastrointestinal: Positive: Nausea, Vomiting, Hematemesis, Other (Black tarry stools), No: Abdominal Pain Genitourinary: No: Dysuria, Nocturia Musculoskeletal: No: Weakness, Pain Neurologic: No: Weakness, Dizziness, Headache Physical Exam Narrative GENERAL: Well-developed well-nourished female no acute respiratory distress. The patient was dry heaving. SKIN: Focused skin assessment warm/dry. HEAD: Atraumatic. Normocephalic. EYES: Pupils equal and round. No scleral icterus. No injection or drainage. ENT: No nasal bleeding or discharge. Mucous membranes pink and moist. NECK: Trachea midline. Supple. CARDIOVASCULAR: Heart rate 101. No murmur appreciated. RESPIRATORY: No accessory muscle use. Clear to auscultation. Breath sounds equal bilaterally. GASTROINTESTINAL: Abdomen soft, nontender. No rebound or guarding. RECTAL EXAM: In the presence of the nurse Chana. No masses or tenderness, stool is dark and scant. Heme positive. MUSCULOSKELETAL: No obvious deformities. No clubbing. No cyanosis. No edema. NEUROLOGICAL: Awake and alert. No obvious cranial nerve deficits. Motor grossly within normal limits. Normal speech. PSYCHIATRIC: Appropriate mood and affect; insight and judgment normal. Data Data Last Documented VS Vital Signs Date Time Temp Pulse Resp B/P (MAP) Pulse Ox O2 Delivery O2 Flow Rate FiO2 06/06/17 18:33 111 16 111/59 (76) 98 Room Air 06/06/17 15:30 98.8 Orders Orders Complete Blood Count With Diff (06/06/17 15:50) Comprehensive Metabolic Panel (06/06/17 15:50) Prothrombin Time / Inr (Pt) (06/06/17 15:50) Act Partial Throm Time (Ptt) (06/06/17 15:50) Urinalysis - C+S If Indicated (06/06/17 15:50) Type And Screen (06/06/17 15:50) Iv Access Insert/Monitor (06/06/17 17:26) Ecg Monitoring (06/06/17 17:26) Oximetry (06/06/17 17:26) Octreotide Inj (Sandostatin Inj) (06/06/17 18:30) Sodium Chlorid 0.9%... W/Octreotide Inj (06/06/17 18:23) Labs Laboratory Tests Test 06/06/17 16:10 06/06/17 16:25 Urine Color YELLOW Urine Turbidity CLEAR Urine pH 5.5 Urine Specific [place] 1.022 Urine Protein NEG mg/dL Urine Glucose (UA) NEG mg/dL Urine Ketones 10 mg/dL Urine Occult Blood NEG Urine Nitrite NEG Urine Bilirubin NEG Urine Urobilinogen LESS THAN 2.0 MG/DL Urine Leukocyte Esterase TRACE Urine RBC LESS THAN 1 /hpf Urine WBC 1 /hpf Urine Squamous Epithelial Cells 5 /hpf Urine Mucus FEW /lpf Microscopic Urinalysis Comment CULT NOT INDICATED White Blood Count 8.5 TH/MM3 Red Blood Count 3.28 MIL/MM3 Hemoglobin 11.2 GM/DL Hematocrit 32.1 % Mean Corpuscular Volume 98.0 FL Mean Corpuscular Hemoglobin 34.2 PG Mean Corpuscular Hemoglobin Concent 34.9 % Red Cell Distribution Width 14.4 % Platelet Count 92 TH/MM3 Mean Platelet Volume 9.2 FL Neutrophils (%) (Auto) 51.8 % Lymphocytes (%) (Auto) 38.3 % Monocytes (%) (Auto) 8.6 % Eosinophils (%) (Auto) 0.4 % Basophils (%) (Auto) 0.9 % Neutrophils # (Auto) 4.4 TH/MM3 Lymphocytes # (Auto) 3.2 TH/MM3 Monocytes # (Auto) 0.7 TH/MM3 Eosinophils # (Auto) 0.0 TH/MM3 Basophils # (Auto) 0.1 TH/MM3 CBC Comment AUTO DIFF Differential Comment AUTO DIFF CONFIRMED Platelet Estimate LOW Platelet Morphology Comment NORMAL Prothrombin Time 13.3 SEC Prothromb Time International Ratio 1.3 RATIO Activated Partial Thromboplast Time 27.4 SEC Blood Urea Nitrogen 21 MG/DL Creatinine 0.57 MG/DL Random Glucose 87 MG/DL Total Protein 7.4 GM/DL Albumin 2.8 GM/DL Calcium Level 8.3 MG/DL Alkaline Phosphatase 95 U/L Aspartate Amino Transf (AST/SGOT) 74 U/L Alanine Aminotransferase (ALT/SGPT) 33 U/L Total Bilirubin 1.4 MG/DL Sodium Level 141 MEQ/L Potassium Level 3.3 MEQ/L Chloride Level 105 MEQ/L Carbon Dioxide Level 26.4 MEQ/L Anion Gap 10 MEQ/L Estimat Glomerular Filtration Rate 113 ML/MIN MDM Medical Decision Making Medical Screen Exam Complete: Yes Emergency Medical Condition: Yes Differential Diagnosis Upper GI bleed versus lower GI bleed versus peptic ulcer disease. Narrative Course 46-year-old female with history of cirrhosis, previous upper GI bleed, presents today with plaints of black tarry stools and vomiting dark blood. Patient has had previous upper GI bleed. Patient's hemoglobin is above 10. She is heme positive from rectal examination. She has been placed on octreotide drip. She has been typed and crossed. Case was discussed with Dr. Jones who will admit the patient to his service. Diagnosis Primary Impression: GI bleed Additional Impressions: History of cirrhosis History of alcoholic liver disease Admitting Information Admitting Physician Requests: Admit Tayo Jarrett MD Jun 06, 2017 18:54
[2017-06-06] MEDS ORDERED: PANTOPRAZOLE INJ 80 MG in SODIUM CHLORIDE 0.9% INJ 35 ML IV ONE (19:30)
[2017-06-06] MEDS ORDERED: PANTOPRAZOLE INJ 80 MG in SODIUM CHLORIDE 0.9% INJ 35 ML IV PUSH ONE (19:30)
[2017-06-06] MEDS ORDERED: PHYTONADIONE 5 MG/SWFI 5 ML ORAL SYR PO ONE (20:00)
[2017-06-06] MEDS: POTASSIUM CHLOR 10 MEQ PREMIX 100 ML IV SCH ×2 (20:29→22:05)
--- NOTE | 2017-06-06 20:29 | HHI.HP ---
[facility] No Primary Care Physician Admission Diagnosis GI bleed, hx of cirrhosis, alcohol Diagnoses: Travel History International Travel<30 Days: No Contact w/Intl Traveler <30 Da: No Traveled to Known Affected Are: No History of Present Illness 46-year-old female with a past medical history significant for GI bleed, hypertension, hepatitis C with cirrhosis, depression/PTSD presents to the emergency department with a chief complaint of hematemesis and dark, tarry stools. The patient reports that she started throwing up both the dark and bright red blood earlier today. She also states she's had a 2 to three-day history of dark, tarry stools. She has history of a GI bleed, last in November. She also complains of right upper quadrant and epigastric pain. She denies any associated weakness or shortness of breath. Denies chest pain. Denies fever/ chills. Review of Systems Except as stated in HPI: all other systems reviewed are Neg Past Family Social History Past Medical History Hypertension Hepatitis C Cirrhosis Depression/PTSD Past Surgical History I&D fourth right digit Reported Medications Reported Meds & Active Scripts Active Bentyl (Dicyclomine HCl) 10 Mg Cap 10 Mg PO TID PRN Lortab (Hydrocodone-Acetaminophen) 5-325 Mg Tab 1-2 Tab PO Q6H PRN Allergies: Coded Allergies: amoxicillin (Unverified Allergy, Severe, RASH, 12/14/16) Family History Patient unaware, she is adopted. Social History Smokes proximally half pack per day. Drinks 1-2 tall boys per day. Positive marijuana. Denies other illicit drugs. Physical Exam Vital Signs Vital Signs Date Time Temp Pulse Resp B/P (MAP) Pulse Ox O2 Delivery O2 Flow Rate FiO2 06/06/17 18:33 111 16 111/59 (76) 98 Room Air 06/06/17 17:53 15 98 Room Air 06/06/17 15:30 98.8 119 17 121/79 (93) 98 Physical Exam GENERAL: female sitting up in bed SKIN: No rashes, ecchymoses or lesions. Cool and dry. HEAD: Atraumatic. Normocephalic. No temporal or scalp tenderness. EYES: Pupils equal round and reactive. Extraocular motions intact. No scleral icterus. No injection or drainage. ENT: Nose without bleeding, purulent drainage or septal hematoma. Throat without erythema, tonsillar hypertrophy or exudate. Uvula midline. Airway patent. NECK: Trachea midline. No JVD or lymphadenopathy. Supple, nontender, no meningeal signs. CARDIOVASCULAR: Regular rate and rhythm without murmurs, gallops, or rubs. RESPIRATORY: Clear to auscultation. Breath sounds equal bilaterally. No wheezes , rales, or rhonchi. GASTROINTESTINAL: Abdomen soft, tender to palpation worse in the right upper quadrant and epigastric regions, mildly distended. No guarding. MUSCULOSKELETAL: Extremities without clubbing, cyanosis, or edema. No joint tenderness, effusion, or edema noted. No calf tenderness. NEUROLOGICAL: Awake and alert. Cranial nerves II through XII intact. Motor and sensory grossly within normal limits. Normal speech. Laboratory Laboratory Tests Test 06/06/17 16:10 06/06/17 16:25 Urine Color YELLOW Urine Turbidity CLEAR Urine pH 5.5 Urine Specific [place] 1.022 Urine Protein NEG Urine Glucose (UA) NEG Urine Ketones 10 Urine Occult Blood NEG Urine Nitrite NEG Urine Bilirubin NEG Urine Urobilinogen LESS THAN 2.0 Urine Leukocyte Esterase TRACE Urine RBC LESS THAN 1 Urine WBC 1 Urine Squamous Epithelial Cells 5 Urine Mucus FEW Microscopic Urinalysis Comment CULT NOT INDICATED White Blood Count 8.5 Red Blood Count 3.28 Hemoglobin 11.2 Hematocrit 32.1 Mean Corpuscular Volume 98.0 Mean Corpuscular Hemoglobin 34.2 Mean Corpuscular Hemoglobin Concent 34.9 Red Cell Distribution Width 14.4 Platelet Count 92 Mean Platelet Volume 9.2 Neutrophils (%) (Auto) 51.8 Lymphocytes (%) (Auto) 38.3 Monocytes (%) (Auto) 8.6 Eosinophils (%) (Auto) 0.4 Basophils (%) (Auto) 0.9 Neutrophils # (Auto) 4.4 Lymphocytes # (Auto) 3.2 Monocytes # (Auto) 0.7 Eosinophils # (Auto) 0.0 Basophils # (Auto) 0.1 CBC Comment AUTO DIFF Differential Comment AUTO DIFF CONFIRMED Platelet Estimate LOW Platelet Morphology Comment NORMAL Prothrombin Time 13.3 Prothromb Time International Ratio 1.3 Activated Partial Thromboplast Time 27.4 Blood Urea Nitrogen 21 Creatinine 0.57 Random Glucose 87 Total Protein 7.4 Albumin 2.8 Calcium Level 8.3 Alkaline Phosphatase 95 Aspartate Amino Transf (AST/SGOT) 74 Alanine Aminotransferase (ALT/SGPT) 33 Total Bilirubin 1.4 Sodium Level 141 Potassium Level 3.3 Chloride Level 105 Carbon Dioxide Level 26.4 Anion Gap 10 Estimat Glomerular Filtration Rate 113 Magnesium Level 2.0 Result Diagram: 06/06/17 1625 06/06/17 1625 Caprini VTE Risk Assessment Caprini VTE Risk Assessment: No/Low Risk (score <= 1) Caprini Risk Assessment Model Point Value = 1 Point Value = 2 Point Value = 3 Point Value = 5 Age 41-60 Minor surgery BMI > 25 kg/m2 Swollen legs Varicose veins or History of unexplained or recurrent spontaneous Oral contraceptives or hormone replacement Sepsis (< 1 month) Serious lung disease, including pneumonia (< 1 month) Abnormal pulmonary function Acute myocardial infarction Congestive heart failure (< 1 month) History of inflammatory bowel disease Medical patient at bed rest Age 61-74 Arthroscopic surgery Major open surgery (> 45 min) Laparoscopic surgery (> 45 min) Malignancy Confined to bed (> 72 hours) Immobilizing plaster cast Central venous access Age >= 75 History of VTE Family history of VTE Factor V Leiden Prothrombin [id number] Lupus anticoagulant Anticardiolipin antibodies Elevated serum homocysteine Heparin-induced thrombocytopenia Other congenital or acquired thrombophilia Stroke (< 1 month) Elective arthroplasty Hip, pelvis, or leg fracture Acute spinal cord injury (< 1 month) Prophylaxis Regimen Total Risk Factor Score Risk Level Prophylaxis Regimen 0-1 Low Early ambulation 2 Moderate Order ONE of the following: *Sequential Compression Device (SCD) *Heparin 5000 units SQ BID 3-4 Higher Order ONE of the following medications: *Heparin 5000 units SQ TID *Enoxaparin/Lovenox 40 mg SQ daily (WT < 150 kg, CrCl > 30 mL/min) *Enoxaparin/Lovenox 30 mg SQ daily (WT < 150 kg, CrCl > 10-29 mL/min) *Enoxaparin/Lovenox 30 mg SQ BID (WT < 150 kg, CrCl > 30 mL/min) AND/OR *Sequential Compression Device (SCD) 5 or more Highest Order ONE of the following medications: *Heparin 5000 units SQ TID (Preferred with Epidurals) *Enoxaparin/Lovenox 40 mg SQ daily (WT < 150 kg, CrCl > 30 mL/min) *Enoxaparin/Lovenox 30 mg SQ daily (WT < 150 kg, CrCl > 10-29 mL/min) *Enoxaparin/Lovenox 30 mg SQ BID (WT < 150 kg, CrCl > 30 mL/min) AND *Sequential Compression Device (SCD) Assessment and Plan Assessment and Plan Assessment/plan: 1. Upper and lower GI bleed Patient with hematemesis and dark, tarry stools History of GI bleed IV Protonix Octreotide drip Serial H&H Transfuse as needed Gastroenterology consulted, appreciate recommendations 2. Hepatitis C/cirrhosis She will need outpatient follow-up Appreciate gastroenterology recommendations 3. Hypertension Patient currently normotensive Not on any home medications Monitor Clonidine when necessary 4. Depression/PTSD Patient reports that she has not been on any medications however would like to restart them She does not know what medication she was previously on Psychiatry consulted, appreciate recommendations 5. Alcohol abuse [facility] protocol Cessation counseling provided FEN NPO Electrolytes: s/p K repletion, repeat BMP Holding pharmacologic anticoagulation for GI bleed Physician Certification 2 Midnight Certification Type: Admission for Inpatient Services Order for Inpatient Services The services are ordered in accordance with Medicare regulations or non- Medicare payer requirements, as applicable. In the case of services not specified as inpatient-only, they are appropriately provided as inpatient services in accordance with the 2-midnight benchmark. Estimated LOS (days): 2 2 days is the estimated time the patient will need to remain in the hospital, assuming treatment plan goals are met and no additional complications. Post-Hospital Plan: Not yet determined Sanjana Duarte MD Jun 06, 2017 20:29
[2017-06-06] MEDS: SODIUM CHLOR 0.9% 1000 ML INJ 1,000 ML IV SCH ×2 (20:30→22:06)
[2017-06-06] MEDS ORDERED: cloNIDine HCL 0.1 MG TAB PO PRN (20:30)
[2017-06-06] MEDS ORDERED: LORazepam 2 MG/ML VIAL IV PUSH PRN ×4 (20:30)
[2017-06-06] MEDS ORDERED: LORazepam 1 MG TAB PO PRN (20:30)
[2017-06-06] MEDS ORDERED: LORazepam 2 MG TAB PO PRN (20:30)
[2017-06-06] MEDS ORDERED: FLUMAZENIL 0.5 MG/5 ML VIAL IV PUSH PRN (20:30)
[2017-06-06] MEDS: SODIUM CHLORIDE 0.9% FLUSH 10 ML FLUSH IV FLUSH SCH (20:51)
[2017-06-06 21:21] VITALS: BP 116/61; PULSE 102; RESP 17; TEMP 99; O2SAT 98
[2017-06-06] MEDS: ONDANSETRON HCL 4 MG/2 ML VIAL IVP PRN (22:09)
[2017-06-07] MEDS: POTASSIUM CHLOR 10 MEQ PREMIX 100 ML IV SCH (00:18)
[2017-06-07 00:20] VITALS: BP 113/58; PULSE 94; RESP 16; TEMP 99.5; O2SAT 97
[2017-06-07 03:42] LABS: AUTOMATED NEUTROPHIL # 1.3 TH/MM3 (1.8-7.7); BASOPHIL % 0.8 % (0.0-2.0); EOSINOPHIL % 0.9 % (0.0-4.0); HEMOGLOBIN 8.8 GM/DL (11.6-15.3); LYMPH % 63.2 % (9.0-44.0); LYMPHOCYTE # 2.9 TH/MM3 (1.0-4.8); MEAN CORPUSCULAR HEMOGLOBIN 34.9 PG (27.0-34.0); MEAN CORPUSCULAR HGB CONC 35.2 % (32.0-36.0); MEAN PLATELET VOLUME 9.1 FL (7.0-11.0); MONO % 6.1 % (0.0-8.0); MONOCYTE # 0.3 TH/MM3 (0-0.9); PLATELET COUNT 64 TH/MM3 (150-450); RED BLOOD COUNT 2.53 MIL/MM3 (4.00-5.30); RED CELL DISTRIBUTION WIDTH 14.3 % (11.6-17.2); WHITE BLOOD COUNT 4.7 TH/MM3 (4.0-11.0)
[2017-06-07 04:12] LABS: ALBUMIN 2.4 GM/DL (3.4-5.0); CALCIUM 7.1 MG/DL (8.5-10.1); CALCIUM-PROTEIN CORRECTED 7.5 MG/DL (8.5-10.1); CREATININE 0.61 MG/DL (0.50-1.00); TOTAL BILIRUBIN ADULT 1.3 MG/DL (0.2-1.0); TOTAL PROTEIN 6.3 GM/DL (6.4-8.2)
[2017-06-07 05:40] VITALS: BP 118/65; PULSE 83; RESP 16; TEMP 98.7; O2SAT 94
[2017-06-07 08:00] VITALS: BP 109/64; PULSE 86; RESP 18; TEMP 98.9; O2SAT 95
[2017-06-07] MEDS: SODIUM CHLORIDE 0.9% FLUSH 10 ML FLUSH IV FLUSH SCH ×2 (08:35→19:59)
[2017-06-07] MEDS: SODIUM CHLOR 0.9% 1000 ML INJ 1,000 ML IV SCH ×3 (08:36→23:39)
[2017-06-07] MEDS: PANTOPRAZOLE SODIUM 40 MG VIAL IV PUSH SCH (08:36)
[2017-06-07] MEDS ORDERED: PANTOPRAZOLE SODIUM 40 MG VIAL IV PUSH SCH (09:00)
[2017-06-07] MEDS ORDERED: CHLORHEXIDINE GLUCONATE 2 % 1 PACK (2 CLOTHS) TOP PRN (11:30)
[2017-06-07] MEDS ORDERED: MISCELLANEOUS NURSING INFORMATION XX SCH (11:30)
[2017-06-07] MEDS ORDERED: CALCIUM GLUCONATE INJ 1 GM in DEXTROSE 5% IN WATER 100ML INJ 100 ML IV ONE ×2 (11:30)
--- NOTE | 2017-06-07 11:32 | HHI.PR ---
Subjective Remarks Patient seen this morning around 9 AM. She says she continues to have dark tarry stools. Denies any chest pain or shortness of breath. Objective Vital Signs Date Time Temp Pulse Resp B/P (MAP) Pulse Ox O2 Delivery O2 Flow Rate FiO2 06/07/17 08:00 98.9 86 18 109/64 (79) 95 06/07/17 05:40 98.7 83 16 118/65 (82) 94 06/07/17 00:20 99.5 94 16 113/58 (76) 97 06/06/17 22:00 Room Air 06/06/17 21:21 99.0 102 17 116/61 (79) 98 06/06/17 21:19 06/06/17 18:33 111 16 111/59 (76) 98 Room Air 06/06/17 17:53 15 98 Room Air 06/06/17 15:30 98.8 119 17 121/79 (93) 98 I/O 06/06/17 06/06/17 06/06/17 06/07/17 06/07/17 06/07/17 07:00 15:00 23:00 07:00 15:00 23:00 Intake Total 0 ml 0 ml Output Total 400 ml Balance -400 ml 0 ml Intake Oral 0 ml 0 ml Output Emesis 400 ml # Voids 1 1 # Bowel Movements 0 0 Result Diagram: 06/07/17 0330 06/07/17 0330 Objective Remarks GENERAL: Patient sitting up in bed. Appears comfortable. Alert and oriented 3. SKIN: Warm and dry. HEAD: Normocephalic. EYES: No scleral icterus. No injection or drainage. NECK: Supple, trachea midline. No JVD. CARDIOVASCULAR: Regular rate and rhythm without murmurs, gallops, or rubs. RESPIRATORY: Breath sounds equal bilaterally. No accessory muscle use. GASTROINTESTINAL: Abdomen soft, non-tender, nondistended. MUSCULOSKELETAL: No cyanosis, or edema. BACK: Nontender without obvious deformity. No CVA tenderness. A/P Assessment and Plan //Upper and lower GI bleed //Anemia. Patient with hematemesis and dark, tarry stools History of GI bleed IV Protonix Octreotide drip Serial H&H Transfuse as needed Gastroenterology consulted, appreciate recommendations = 06/07. Hemoglobin down to 8.8 from 11.2. Continue to monitor every 8 hemoglobin. Appreciate GI assistance. Continue Protonix and octreotide drips. //Thrombocytopenia = Noticed on the 60s from 90s on admission. Likely secondary to liver disease. = We'll check fibrinogen, recheck INR. Follow-up labs // Hepatitis C/cirrhosis She will need outpatient follow-up Appreciate gastroenterology recommendations /Hypocalcemia. = Calcium 7.1. Corrected calcium 8.3. Will order calcium in anticipation of further blood transfusions. //Hypertension Patient currently normotensive Not on any home medications Monitor Clonidine when necessary = 2/. Patient continues normotensive. Continue to monitor. //Depression/PTSD Patient reports that she has not been on any medications however would like to restart them She does not know what medication she was previously on Psychiatry consulted, appreciate recommendations = Follow-up psychiatry recommendations. Appreciate assistance. //Alcohol abuse [facility] protocol Cessation counseling provided FEN NPO Electrolytes: s/p K repletion, repeat BMP Holding pharmacologic anticoagulation for GI bleed Discharge Planning Continue inpatient treatment. Cam Jones MD Jun 07, 2017 11:32
[2017-06-07 12:00] VITALS: BP 93/55; PULSE 69; RESP 18; TEMP 98.2; O2SAT 96
[2017-06-07] MEDS ORDERED: PROPOFOL 200 MG/20 ML AMP IV ONE (12:00)
[2017-06-07] MEDS ORDERED: LIDOCAINE HCL 1% PF 5 ML SYRINGE OTHER ONE (12:00)
--- NOTE | 2017-06-07 12:38 | PD.CONS ---
HPI History of Present Illness This is a 46 year old female with hx GIB, cirrhosis, hep C, ETOH abuse, multi substance abuse who presented with hematemesis, black tarry stool, epigastric pain. 2- 3 days ago she began having epigastric and RUQ pain and n/v with samira red blood in emesis and black tarry stools. No vomiting today. She had EGD 10/[address] Miller at [facility] and finding of esophageal varices w/o stigmata bleeding, portal gastropathy. Never had colonoscopy. (Jacki Oneal) PFSH Past Medical History Hypertension Hepatitis C Cirrhosis Depression/PTSD Past Surgical History I&D fourth right digit (Jacki Oneal) Coded Allergies: amoxicillin (Unverified Allergy, Severe, RASH, 12/14/16) Family History Patient unaware, she is adopted. Social History Smokes proximally half pack per day. Drinks 1-2 tall boys per day. Positive marijuana. Denies other illicit drugs. (Jacki Oneal) Review of Systems Constitutional: DENIES: Fever Eyes: DENIES: Blurred vision Ears, nose, mouth, throat: DENIES: Hearing loss Respiratory: DENIES: Cough Cardiovascular: DENIES: Chest pain Gastrointestinal: COMPLAINS OF: Abdominal pain, Black stools, Nausea, Vomiting , Hematemesis, DENIES: Bloody stools Genitourinary: DENIES: Hematuria Musculoskeletal: DENIES: Joint Swelling Integumentary: DENIES: Pruritus Immunologic/allergic: DENIES: Eczema Neurologic: DENIES: Abnormal gait Psychiatric: DENIES: Confusion (Jacki Oneal) GI Exam Vitals I&O Vital Signs Date Time Temp Pulse Resp B/P (MAP) Pulse Ox O2 Delivery O2 Flow Rate FiO2 06/07/17 08:00 98.9 86 18 109/64 (79) 95 06/07/17 05:40 98.7 83 16 118/65 (82) 94 06/07/17 00:20 99.5 94 16 113/58 (76) 97 06/06/17 22:00 Room Air 06/06/17 21:21 99.0 102 17 116/61 (79) 98 06/06/17 21:19 06/06/17 18:33 111 16 111/59 (76) 98 Room Air 06/06/17 17:53 15 98 Room Air 06/06/17 15:30 98.8 119 17 121/79 (93) 98 I/O 06/06/17 06/06/17 06/06/17 06/07/17 06/07/17 06/07/17 07:00 15:00 23:00 07:00 15:00 23:00 Intake Total 0 ml 0 ml Output Total 400 ml Balance -400 ml 0 ml Intake Oral 0 ml 0 ml Output Emesis 400 ml # Voids 1 1 # Bowel Movements 0 0 Laboratory Test 06/06/17 16:10 06/06/17 16:25 06/07/17 03:30 Urine Color YELLOW Urine Turbidity CLEAR Urine pH 5.5 Urine Specific [place] 1.022 Urine Protein NEG mg/dL Urine Glucose (UA) NEG mg/dL Urine Ketones 10 mg/dL Urine Occult Blood NEG Urine Nitrite NEG Urine Bilirubin NEG Urine Urobilinogen LESS THAN 2.0 MG/DL Urine Leukocyte Esterase TRACE Urine RBC LESS THAN 1 /hpf Urine WBC 1 /hpf Urine Squamous Epithelial Cells 5 /hpf Urine Mucus FEW /lpf Microscopic Urinalysis Comment CULT NOT INDICATED White Blood Count 8.5 TH/MM3 4.7 TH/MM3 Red Blood Count 3.28 MIL/MM3 2.53 MIL/MM3 Hemoglobin 11.2 GM/DL 8.8 GM/DL Hematocrit 32.1 % 25.0 % Mean Corpuscular Volume 98.0 FL 99.0 FL Mean Corpuscular Hemoglobin 34.2 PG 34.9 PG Mean Corpuscular Hemoglobin Concent 34.9 % 35.2 % Red Cell Distribution Width 14.4 % 14.3 % Platelet Count 92 TH/MM3 64 TH/MM3 Mean Platelet Volume 9.2 FL 9.1 FL Neutrophils (%) (Auto) 51.8 % 29.0 % Lymphocytes (%) (Auto) 38.3 % 63.2 % Monocytes (%) (Auto) 8.6 % 6.1 % Eosinophils (%) (Auto) 0.4 % 0.9 % Basophils (%) (Auto) 0.9 % 0.8 % Neutrophils # (Auto) 4.4 TH/MM3 1.3 TH/MM3 Lymphocytes # (Auto) 3.2 TH/MM3 2.9 TH/MM3 Monocytes # (Auto) 0.7 TH/MM3 0.3 TH/MM3 Eosinophils # (Auto) 0.0 TH/MM3 0.0 TH/MM3 Basophils # (Auto) 0.1 TH/MM3 0.0 TH/MM3 CBC Comment AUTO DIFF AUTO DIFF Differential Comment AUTO DIFF CONFIRMED AUTO DIFF CONFIRMED Platelet Estimate LOW LOW Platelet Morphology Comment NORMAL NORMAL Prothrombin Time 13.3 SEC Prothromb Time International Ratio 1.3 RATIO Activated Partial Thromboplast Time 27.4 SEC Blood Urea Nitrogen 21 MG/DL 19 MG/DL Creatinine 0.57 MG/DL 0.61 MG/DL Random Glucose 87 MG/DL 106 MG/DL Total Protein 7.4 GM/DL 6.3 GM/DL Albumin 2.8 GM/DL 2.4 GM/DL Calcium Level 8.3 MG/DL 7.1 MG/DL Alkaline Phosphatase 95 U/L 83 U/L Aspartate Amino Transf (AST/SGOT) 74 U/L 66 U/L Alanine Aminotransferase (ALT/SGPT) 33 U/L 30 U/L Total Bilirubin 1.4 MG/DL 1.3 MG/DL Sodium Level 141 MEQ/L 144 MEQ/L Potassium Level 3.3 MEQ/L 4.0 MEQ/L Chloride Level 105 MEQ/L 111 MEQ/L Carbon Dioxide Level 26.4 MEQ/L 27.0 MEQ/L Anion Gap 10 MEQ/L 6 MEQ/L Estimat Glomerular Filtration Rate 113 ML/MIN 105 ML/MIN Magnesium Level 2.0 MG/DL Protein Corrected Calcium 7.5 MG/DL Physical Examination HEENT: PERRL; normocephalic; atraumatic; no jaundice. CHEST: CTA CARDIAC: RRR ABDOMEN: Soft, mildly distended, diffuse TTP; no hepatosplenomegaly; bowel sounds are present in all four quadrants. EXTREMITIES: No clubbing, cyanosis, or edema. SKIN: Normal; no rash; no jaundice. TRANSPORTATION CONSULTANT: No focal deficits; alert and oriented times three. (Jacki Oneal [facility]) Assessment and Plan Plan ASSESSMENT - hematemesis, black tarry stool - UGIB could be variceal. EGD 10/2016 showed grade 2 esophageal varices, portal gastropathy - anemia with drop in hgb - hgb dropped from 11.2 to 8.8 overnight. - hx hep c - did interferon for 1 wk in 2001 and nothing since, cites insurance issues PLAN - EGD today - obtain consent - keep NPO - continue protonix, octreotide - monitor labs - further recs to follow pt seen by myself and Dr Christensen and this note is written on her behalf (Jacki Oneal) Jacki Oneal Jun 07, 2017 12:38 Daphne Christensen MD Jun 07, 2017 23:02
[2017-06-07 13:07] LABS: INTERNATIONAL NORMALIZED RATIO 1.3 RATIO; PROTHROMBIN TIME - PATIENT 13.6 SEC (9.8-11.6)
[2017-06-07] MEDS: OCTREOTIDE INJ 500 MCG in SODIUM CHLORID 0.9% 500 ML INJ 499.5 ML IV SCH (14:23)
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
--- NOTE | 2017-06-07 15:53 | EKG ---
Date Performed: 06/06/2017 Time Performed: 16:20:52 PTAGE: 46 years EKG: SINUS TACHYCARDIA ABNORMAL RHYTHM ECG Since the prior tracing, there has been no significan t change NO PREVIOUS TRACING DOCTOR: Marko Woodall Interpretating Date/Time 06/07/2017 15:51:14
--- NOTE | 2017-06-07 16:19 | GIPROC ---
[facility] [address] [facility]. [facility], [address] EGD PROCEDURE REPORT EXAM DATE: 06/07/2017 PATIENT NAME: Vaibhav Daigle MR #: [id number] BIRTHDATE: 1970 ATTENDING: Daphne Christensen MD ORDER #: [id number] HYDRAULIC LIFT OPERATOR: Anitha Mcclellan and Lorri Jones STATUS: inpatient INDICATIONS: The patient is a 46 yr old female here for an EGD due to anemia gi bleeding history of cirrhosis PROCEDURE PERFORMED: EGD w/ biopsy MEDICATIONS: None and Per Anesthesia. TOPICAL ANESTHETIC: none CONSENT: The patient understands the risks and benefits of the procedure and understands that these risks include, but are not limited to: sedation, allergic reaction, infection, perforation and/or bleeding. Alternative means of evaluation and treatment include, among others: physical exam, x-rays, and/or surgical intervention. The patient elects to proceed with this endoscopic procedure. medical equipment was checked for proper function. Hand hygiene and appropriate measures for infection prevention was taken. After the risks, benefits and alternatives of the procedure were thoroughly explained, Informed consent was verified, confirmed and timeout was successfully executed by the treatment team. The patient was anesthetized with topical anesthesia and the Pentax [id number] endoscope was introduced through the mouth and advanced to the second portion of the duodenum. Retroflexed views revealed a hiatal hernia The gastroscope was then slowly withdrawn and removed. Esophageal variced grade 1 portal gastropathy small stomach fundus diverticulum duodenitis second portion-biopsy superficial linear ulcers antrum-biopsy. ADVERSE EVENTS: There were no complications. IMPRESSIONS: 1. Esophageal variced grade 1 portal gastropathy small stomach fundus diverticulum duodenitis second portion-biopsy superficial linear ulcers antrum-biopsy 2. Retroflexed views revealed a hiatal hernia RECOMMENDATIONS: 1. Await biopsy results. Biopsy results will not be ready for 7-10 days. If you don't hear from us in two weeks, call our office for biopsy results. 2. Anti-reflux regimen 3. Continue PPI 4. Avoid NSAIDS PATIENT CONDITION: stable DISPOSITION: Inpatient REPEAT EXAM: Return 6 months EGD Daphne Christensen MD eSigned: Daphne Christensen MD 06/07/2017 4:19 PM cc: PATIENT NAME: Vaibhav Daigle MR#: [id number]
[2017-06-07 19:28] LABS: AUTOMATED NEUTROPHIL # 0.9 TH/MM3 (1.8-7.7); BASOPHIL % 0.9 % (0.0-2.0); EOSINOPHIL # 0.1 TH/MM3 (0-0.4); EOSINOPHIL % 2.8 % (0.0-4.0); HEMOGLOBIN 7.8 GM/DL (11.6-15.3); LYMPH % 58.5 % (9.0-44.0); LYMPHOCYTE # 1.8 TH/MM3 (1.0-4.8); MEAN CELL VOLUME 100.9 FL (80.0-100.0); MEAN CORPUSCULAR HEMOGLOBIN 34.2 PG (27.0-34.0); MEAN CORPUSCULAR HGB CONC 33.9 % (32.0-36.0); MEAN PLATELET VOLUME 9.2 FL (7.0-11.0); MONO % 7.2 % (0.0-8.0); MONOCYTE # 0.2 TH/MM3 (0-0.9); NEUT % 30.6 % (16.0-70.0); PLATELET COUNT 61 TH/MM3 (150-450); RED BLOOD COUNT 2.28 MIL/MM3 (4.00-5.30); RED CELL DISTRIBUTION WIDTH 14.5 % (11.6-17.2)
[2017-06-07 19:45] VITALS: BP 119/62; PULSE 72; RESP 15; TEMP 97.4; O2SAT 98
[2017-06-07] MEDS: traZODone HCL 100 MG TAB PO SCH (19:59)
[2017-06-07 20:11] LABS: BASOPHILS 1 % (0-2); LYMPHOCYTES 58 % (9-44); MONOCYTES 4 % (0-8); POLYS (SEG NEUTROPHILS) 32 % (16-70)
[2017-06-07] MEDS: CHLORHEXIDINE GLUCONATE 2 % 1 PACK (2 CLOTHS) TOP SCH (23:39)
[2017-06-08 01:00] VITALS: BP 92/52; PULSE 80; RESP 16; TEMP 97.9; O2SAT 95
[2017-06-08 08:00] VITALS: BP 93/54; PULSE 90; RESP 18; TEMP 97.8; O2SAT 91
[2017-06-08] MEDS: PANTOPRAZOLE SODIUM 40 MG VIAL IV PUSH SCH (10:12)
[2017-06-08] MEDS: SODIUM CHLOR 0.9% 1000 ML INJ 1,000 ML IV SCH ×2 (10:12→19:58)
[2017-06-08] MEDS: SODIUM CHLORIDE 0.9% FLUSH 10 ML FLUSH IV FLUSH SCH ×2 (10:13→19:58)
[2017-06-08 11:37] VITALS: BP 97/61; PULSE 90; RESP 17; TEMP 98.8; O2SAT 91
[2017-06-08 12:20] LABS: ALBUMIN 2.1 GM/DL (3.4-5.0); ALT (GPT) 23 U/L (10-53); AST (GOT) 52 U/L (15-37); BICARBONATE 23.2 MEQ/L (21.0-32.0); BLOOD UREA NITROGEN 11 MG/DL (7-18); CALCIUM 7.6 MG/DL (8.5-10.1); CHLORIDE 113 MEQ/L (98-107); CREATININE 0.54 MG/DL (0.50-1.00); GLOMERULAR FILTRATION RATE 120 ML/MIN (>89); GLUCOSE,RANDOM 100 MG/DL (74-106); SODIUM (NA) 144 MEQ/L (136-145)
[2017-06-08 12:23] LABS: ALKALINE PHOSPHATASE 73 U/L (45-117); TOTAL BILIRUBIN ADULT 0.8 MG/DL (0.2-1.0); TOTAL PROTEIN 5.6 GM/DL (6.4-8.2)
--- NOTE | 2017-06-08 13:03 | HHI.PYPN ---
Subjective Remarks The patient was seen today for psychiatric reevaluation. Chart was reviewed. Patient was found sleeping, but easily arousable. She reports feeling much better today, feeling rested, had a very good night sleep last night. She denies depression, denies anxiety, denies anay, denies psychosis. She denies suicidal and homicidal ideation, she denies visual and auditory hallucinations. Oriented 3. Review of Systems Except as stated in HPI: all other systems reviewed are Neg Mental Status Examination Appearance: Appropriate Consciousness: Alert Orientation: x4 Motor Activity: Normal gait Speech: Unremarkable Language: Adequate Fund of Knowledge: Adequate Attention and Concentration: Adequate Memory: Unremarkable Mood: Appropriate Affect: Appropriate, Anxious Thought Process & Associations: Intact Thought Content: Appropriate Hallucination Type: None Delusion Type: None Suicidal Ideation: No Suicidal Plan: No Suicidal Intention: No Homicidal Ideation: No Homicidal Plan: No Homicidal Intention: No Insight: Adequate Judgment: Adequate Results Labs Test 06/07/17 18:53 06/08/17 11:23 White Blood Count 3.0 TH/MM3 Red Blood Count 2.28 MIL/MM3 Hemoglobin 7.8 GM/DL Hematocrit 23.0 % Mean Corpuscular Volume 100.9 FL Mean Corpuscular Hemoglobin 34.2 PG Mean Corpuscular Hemoglobin Concent 33.9 % Red Cell Distribution Width 14.5 % Platelet Count 61 TH/MM3 Mean Platelet Volume 9.2 FL Neutrophils (%) (Auto) 30.6 % Lymphocytes (%) (Auto) 58.5 % Monocytes (%) (Auto) 7.2 % Eosinophils (%) (Auto) 2.8 % Basophils (%) (Auto) 0.9 % Neutrophils # (Auto) 0.9 TH/MM3 Lymphocytes # (Auto) 1.8 TH/MM3 Monocytes # (Auto) 0.2 TH/MM3 Eosinophils # (Auto) 0.1 TH/MM3 Basophils # (Auto) 0.0 TH/MM3 CBC Comment AUTO DIFF Differential Total Cells Counted 100 Neutrophils % (Manual) 32 % Lymphocytes % 58 % Monocytes % 4 % Eosinophils % 5 % Basophils % 1 % Neutrophils # (Manual) 1.0 TH/MM3 Differential Comment FINAL DIFF MANUAL Platelet Estimate LOW Platelet Morphology Comment NORMAL Blood Urea Nitrogen 11 MG/DL Creatinine 0.54 MG/DL Random Glucose 100 MG/DL Total Protein 5.6 GM/DL Albumin 2.1 GM/DL Calcium Level 7.6 MG/DL Alkaline Phosphatase 73 U/L Aspartate Amino Transf (AST/SGOT) 52 U/L Alanine Aminotransferase (ALT/SGPT) 23 U/L Total Bilirubin 0.8 MG/DL Sodium Level 144 MEQ/L Potassium Level 3.6 MEQ/L Chloride Level 113 MEQ/L Carbon Dioxide Level 23.2 MEQ/L Anion Gap 8 MEQ/L Estimat Glomerular Filtration Rate 120 ML/MIN Vitals/IOs Vital Signs Date Time Temp Pulse Resp B/P (MAP) Pulse Ox O2 Delivery O2 Flow Rate FiO2 06/08/17 11:37 98.8 90 17 97/61 (73) 91 06/07/17 20:00 Room Air Intake and Output 06/08/17 06/08/17 06/09/17 08:00 16:00 00:00 Intake Total 480 ml Balance 480 ml Assessment & Plan Problem List: (1) Adjustment disorder with mixed anxiety and depressed mood ICD Codes: F43.23 - Adjustment disorder with mixed anxiety and depressed mood Assessment & Plan: Continue trazodone 100 mg at bedtime. Brief supportive psychotherapy provided. Assessment & Plan Estimated LOS: days Justification for Cont. Inpt. No psychiatric admission indicated. Jadon Del Real MD Jun 08, 2017 13:03
[2017-06-08 15:37] VITALS: BP 122/56; PULSE 87; RESP 18; TEMP 99.7; O2SAT 99
--- NOTE | 2017-06-08 16:01 | HHI.GIFU ---
Subjective Remarks Pt c/o abd discomfort and not being able to have a BM. She says she is feeling mildly nauseous as well. Per RN earlier she was asking for diet to be advanced but requests to me to stay on clears. (Jacki Oneal) Objective Vitals I&O Vital Signs Date Time Temp Pulse Resp B/P (MAP) Pulse Ox O2 Delivery O2 Flow Rate FiO2 06/08/17 15:37 99.7 87 18 122/56 (78) 99 06/08/17 11:37 98.8 90 17 97/61 (73) 91 06/08/17 08:00 97.8 90 18 93/54 (67) 91 06/08/17 01:00 97.9 80 16 92/52 (65) 95 06/07/17 20:00 Room Air 06/07/17 19:45 97.4 72 15 119/62 (81) 98 06/07/17 18:39 Room Air 06/07/17 16:15 75 18 107/60 (76) 93 Room Air I/O 06/07/17 06/07/17 06/07/17 06/08/17 06/08/17 06/08/17 07:00 15:00 23:00 07:00 15:00 23:00 Intake Total 0 ml 1000 ml 480 ml Balance 0 ml 1000 ml 480 ml Intake Oral 0 ml 800 ml 480 ml Other 200 ml # Voids 1 3 2 # Bowel Movements 0 0 0 Laboratory Laboratory Tests Test 06/07/17 18:53 06/08/17 11:23 White Blood Count 3.0 Red Blood Count 2.28 Hemoglobin 7.8 Hematocrit 23.0 Mean Corpuscular Volume 100.9 Mean Corpuscular Hemoglobin 34.2 Mean Corpuscular Hemoglobin Concent 33.9 Red Cell Distribution Width 14.5 Platelet Count 61 Mean Platelet Volume 9.2 Neutrophils (%) (Auto) 30.6 Lymphocytes (%) (Auto) 58.5 Monocytes (%) (Auto) 7.2 Eosinophils (%) (Auto) 2.8 Basophils (%) (Auto) 0.9 Neutrophils # (Auto) 0.9 Lymphocytes # (Auto) 1.8 Monocytes # (Auto) 0.2 Eosinophils # (Auto) 0.1 Basophils # (Auto) 0.0 CBC Comment AUTO DIFF Differential Total Cells Counted 100 Neutrophils % (Manual) 32 Lymphocytes % 58 Monocytes % 4 Eosinophils % 5 Basophils % 1 Neutrophils # (Manual) 1.0 Differential Comment FINAL DIFF MANUAL Platelet Estimate LOW Platelet Morphology Comment NORMAL Blood Urea Nitrogen 11 Creatinine 0.54 Random Glucose 100 Total Protein 5.6 Albumin 2.1 Calcium Level 7.6 Alkaline Phosphatase 73 Aspartate Amino Transf (AST/SGOT) 52 Alanine Aminotransferase (ALT/SGPT) 23 Total Bilirubin 0.8 Sodium Level 144 Potassium Level 3.6 Chloride Level 113 Carbon Dioxide Level 23.2 Anion Gap 8 Estimat Glomerular Filtration Rate 120 Physical Exam HEENT: PERRL; normocephalic; atraumatic; no jaundice. CHEST: CTA CARDIAC: RRR ABDOMEN: Soft, mildly distended, mild RUQ TTP; no hepatosplenomegaly; bowel sounds are present in all four quadrants. EXTREMITIES: No clubbing, cyanosis, or edema. SKIN: Normal; no rash; no jaundice. CLIENT EVALUATOR: No focal deficits; alert and oriented times three. (Jacki Oneal) Assessment and Plan Plan ASSESSMENT - hematemesis, black tarry stool - UGIB could be variceal. EGD 10/2016 showed grade 2 esophageal varices, portal gastropathy - anemia with drop in hgb - hgb dropped from 11.2 to 8.8 overnight. - hx hep c - did interferon for 1 wk in 2001 and nothing since, cites insurance issues 06/08/17 s/p EGD 06/07 found grade 1 esophageal varices, portal gastropathy, duodenitis, small stomach, diverticulum, superficial lineal ulcers, hiatal hernia. no HH today, will rck. no bleeding. PLAN - rck H&H - await bx - advance diet as tolerated, pt requesting clears - continue protonix - monitor labs - repeat EGD in 6m pt seen by myself and Dr Christensen and this note is written on her behalf (Jacki Oneal) Physician Comments seen, examined agree with above still complaining of pain in rlq and ruq advance diet ct abdomen/pelvis kiera fetoprotein consider hep c rx op -states she has no insurance so she cannot afford it (Daphne Christensen MD) Jacki Oneal Jun 08, 2017 16:01 Daphne Christensen MD Jun 08, 2017 19:43
--- NOTE | 2017-06-08 16:06 | HHI.PR ---
Subjective Remarks Patient reports continued black tarry bowel movements, continued epigastric pain.. Continues to deny chest pain or shortness of breath. Objective Vital Signs Date Time Temp Pulse Resp B/P (MAP) Pulse Ox O2 Delivery O2 Flow Rate FiO2 06/08/17 15:37 99.7 87 18 122/56 (78) 99 06/08/17 11:37 98.8 90 17 97/61 (73) 91 06/08/17 08:00 97.8 90 18 93/54 (67) 91 06/08/17 01:00 97.9 80 16 92/52 (65) 95 06/07/17 20:00 Room Air 06/07/17 19:45 97.4 72 15 119/62 (81) 98 06/07/17 18:39 Room Air 06/07/17 16:15 75 18 107/60 (76) 93 Room Air I/O 06/07/17 06/07/17 06/07/17 06/08/17 06/08/17 06/08/17 07:00 15:00 23:00 07:00 15:00 23:00 Intake Total 0 ml 1000 ml 480 ml Balance 0 ml 1000 ml 480 ml Intake Oral 0 ml 800 ml 480 ml Other 200 ml # Voids 1 3 2 # Bowel Movements 0 0 0 Result Diagram: 06/07/17 1853 06/08/17 1123 Objective Remarks GENERAL: Patient sitting up in bed. Appears comfortable. Alert and oriented 3. SKIN: Warm and dry. HEAD: Normocephalic. EYES: No scleral icterus. No injection or drainage. NECK: Supple, trachea midline. No JVD. CARDIOVASCULAR: Regular rate and rhythm without murmurs, gallops, or rubs. RESPIRATORY: Breath sounds equal bilaterally. No accessory muscle use. GASTROINTESTINAL: Abdomen soft, non-tender, nondistended. No rebound or guarding MUSCULOSKELETAL: No cyanosis, or edema. BACK: Nontender without obvious deformity. No CVA tenderness. A/P Assessment and Plan //Upper and lower GI bleed //Anemia. Patient with hematemesis and dark, tarry stools History of GI bleed IV Protonix Octreotide drip Serial H&H Transfuse as needed Gastroenterology consulted, appreciate recommendations = 6. Hemoglobin down to 8.8 from 11.2. Continue to monitor every 8 hemoglobin. Appreciate GI assistance. Continue Protonix and octreotide drips. = 2/. EGD with grade 1 esophageal varices, no signs of bleeding. Patient with continued black tarry bowel movements. Hemoglobin down to 7.8 yesterday evening. Recheck CBC today pending. Appreciate GI assistance. //Thrombocytopenia = Noticed on the 60s from 90s on admission. Likely secondary to liver disease. = We'll check fibrinogen, recheck INR. Follow-up labs = Fibrinogen low 115, likely secondary to liver dysfunction. = Checks her monocytes today pending. // Hepatitis C/cirrhosis She will need outpatient follow-up Appreciate gastroenterology recommendations //Leukopenia. Leukocytes 3.0 yesterday. Lab error. /Hypocalcemia. = Calcium 7.1. Corrected calcium 8.3. Will order calcium in anticipation of further blood transfusions. = Calcium 7.6. Corrects to normal range. //Hypertension Patient currently normotensive Not on any home medications Monitor Clonidine when necessary = 06/07. Patient continues normotensive. Continue to monitor. //Depression/PTSD Patient reports that she has not been on any medications however would like to restart them She does not know what medication she was previously on Psychiatry consulted, appreciate recommendations = psych following. Continue trazodone. Appreciate assistance. //Alcohol abuse [facility] protocol Cessation counseling provided Discharge Planning Continue inpatient treatment. Cam Jones MD Jun 08, 2017 16:06
[2017-06-08 18:02] LABS: AUTOMATED NEUTROPHIL # 0.9 TH/MM3 (1.8-7.7); BASOPHIL % 0.7 % (0.0-2.0); EOSINOPHIL % 1.6 % (0.0-4.0); HEMATOCRIT 23.5 % (35.0-46.0); LYMPHOCYTE # 1.2 TH/MM3 (1.0-4.8); MEAN CELL VOLUME 100.9 FL (80.0-100.0); MEAN CORPUSCULAR HEMOGLOBIN 34.5 PG (27.0-34.0); MEAN CORPUSCULAR HGB CONC 34.2 % (32.0-36.0); MEAN PLATELET VOLUME 9.2 FL (7.0-11.0); MONOCYTE # 0.2 TH/MM3 (0-0.9); NEUT % 36.7 % (16.0-70.0); PLATELET COUNT 63 TH/MM3 (150-450); RED BLOOD COUNT 2.33 MIL/MM3 (4.00-5.30); RED CELL DISTRIBUTION WIDTH 14.1 % (11.6-17.2); WHITE BLOOD COUNT 2.4 TH/MM3 (4.0-11.0)
[2017-06-08 18:41] LABS: BASOPHILS 1 % (0-2); LYMPHOCYTES 58 % (9-44); MONOCYTES 8 % (0-8); NEUTROPHIL # MANUAL DIFF 0.8 TH/MM3 (1.8-7.7); POLYS (SEG NEUTROPHILS) 32 % (16-70)
[2017-06-08] MEDS: traZODone HCL 100 MG TAB PO SCH (19:58)
[2017-06-08 20:00] VITALS: BP 106/63; PULSE 75; RESP 17; TEMP 97.6; O2SAT 96
[2017-06-08] MEDS ORDERED: DIATRIZOATE MEGLUM/DIATRIZOATE SOD 9 ML CUP PO ONE (20:00)
[2017-06-09] VITALS: BP 115/67; PULSE 78; RESP 16; TEMP 97.6; O2SAT 97
[2017-06-09] MEDS ORDERED: IOHEXOL 350 MG/ML 10 ML VIAL (for RAD DIAG) IVCONTRAST ONE (01:09)
--- NOTE | 2017-06-09 01:16 | RADRPT ---
EXAM DATE/TIME: 06/09/2017 00:53 [place] COMPARISON: CT ABDOMEN & PELVIS W/O CONTRAST, October 23, 2016, 7:13. INDICATIONS : Diffuse abdominal pain. IV CONTRAST: 100 cc Omnipaque 350 (iohexol) IV ORAL CONTRAST: Prescribed oral contrast ingested. RADIATION DOSE: 6.84 CTDIvol (mGy) MEDICAL HISTORY : Hypertension. Gastroesophageal reflux disease. Hepatitis C.ETOH Abuse. SURGICAL HISTORY : None. ENCOUNTER: Initial ACUITY: 2 days PAIN SCALE: 6/10 LOCATION: Abdomen. TECHNIQUE: Volumetric scanning of the abdomen and pelvis was performed. Using automated exposure control and ad justment of the mA and/or kV according to patient size, radiation dose was kept as low as reasonably achievable to obtain optimal diagnostic quality images. DICOM format image data is available electro nically for review and comparison. FINDINGS: LOWER LUNGS: The visualized lower lungs are clear. LIVER: Liver demonstrates a nodular contour characteristic of cirrhosis with central atrophy. There is a rec annulized paraumbilical vein. No focal liver lesion is identified. Portal vein is patent. There are l arge stones within the gallbladder. Pericholecystic fluid is present likely related to generalized as cites. SPLEEN: Enlarged measuring 17.7 cm. No lesion is seen. PANCREAS: Within normal limits. KIDNEYS: Normal in size and shape. There is no mass, stone or hydronephrosis. ADRENAL GLANDS: Within normal limits. VASCULAR: There is no aortic aneurysm. There are esophageal varices. BOWEL/MESENTERY: Esophageal varices are visualized. Stomach and small bowel demonstrate no acute finding. There is mil d wall thickening of the colon diffusely but colon is decompressed. No free air is present. There is a small volume of free fluid in the abdomen and pelvis. ABDOMINAL WALL: Within normal limits. RETROPERITONEUM: There is no lymphadenopathy. BLADDER: No wall thickening or mass. REPRODUCTIVE: Within normal limits. INGUINAL: There is no lymphadenopathy or hernia. MUSCULOSKELETAL: There are mild degenerative changes of the lumbar spine. CONCLUSION: 1. Mild diffuse wall thickening of the entire colon. This could be related to underdistention, relate d to the portal hypertension, or represent a colitis. 2. Liver demonstrates features diagnostic of cirrhosis. There are features indicative of portal hyper tension including recanalized para medical vein, esophageal varices, splenomegaly, and ascites. 3. Cholelithiasis. Rashad Hall MD on June 09, 2017 at 1:10 Board Certified Radiologist. This report was verified electronically.
[2017-06-09] MEDS: CHLORHEXIDINE GLUCONATE 2 % 1 PACK (2 CLOTHS) TOP SCH ×2 (04:00→20:45)
[2017-06-09 06:36] LABS: AUTOMATED NEUTROPHIL # 0.7 TH/MM3 (1.8-7.7); BASOPHIL % 0.4 % (0.0-2.0); EOSINOPHIL % 2.4 % (0.0-4.0); HEMATOCRIT 22.3 % (35.0-46.0); HEMOGLOBIN 7.7 GM/DL (11.6-15.3); LYMPH % 51.7 % (9.0-44.0); LYMPHOCYTE # 0.9 TH/MM3 (1.0-4.8); MEAN CELL VOLUME 100.5 FL (80.0-100.0); MEAN CORPUSCULAR HEMOGLOBIN 34.8 PG (27.0-34.0); MEAN CORPUSCULAR HGB CONC 34.6 % (32.0-36.0); MEAN PLATELET VOLUME 9.6 FL (7.0-11.0); MONO % 8.1 % (0.0-8.0); MONOCYTE # 0.1 TH/MM3 (0-0.9); NEUT % 37.4 % (16.0-70.0); PLATELET COUNT 57 TH/MM3 (150-450); RED BLOOD COUNT 2.22 MIL/MM3 (4.00-5.30); RED CELL DISTRIBUTION WIDTH 14.3 % (11.6-17.2); WHITE BLOOD COUNT 1.8 TH/MM3 (4.0-11.0)
[2017-06-09 07:00] LABS: ALBUMIN 2.2 GM/DL (3.4-5.0); BICARBONATE 23.4 MEQ/L (21.0-32.0); CREATININE 0.43 MG/DL (0.50-1.00); PHOSPHORUS 2.5 MG/DL (2.5-4.9)
[2017-06-09 08:15] VITALS: BP 104/55; PULSE 83; RESP 17; TEMP 98.4; O2SAT 93
[2017-06-09] MEDS: SODIUM CHLORIDE 0.9% FLUSH 10 ML FLUSH IV FLUSH SCH ×2 (09:00→20:45)
[2017-06-09] MEDS: PANTOPRAZOLE SODIUM 40 MG VIAL IV PUSH SCH (09:05)
[2017-06-09] MEDS: SODIUM CHLOR 0.9% 1000 ML INJ 1,000 ML IV SCH ×2 (09:05→16:59)
[2017-06-09 09:52] LABS: BANDS 2 % (0-6); BASOPHILS 1 % (0-2); LYMPHOCYTES 49 % (9-44); MONOCYTES 6 % (0-8); NEUTROPHIL # MANUAL DIFF 0.7 TH/MM3 (1.8-7.7); POLYS (SEG NEUTROPHILS) 38 % (16-70)
[2017-06-09 12:00] VITALS: BP 111/62; PULSE 85; RESP 17; TEMP 98.6; O2SAT 92
--- NOTE | 2017-06-09 12:56 | HHI.PR ---
Subjective Remarks pt seen morning around 10 am. no cp no sob. generalized fatigue, says is not getting better. Objective Vital Signs Date Time Temp Pulse Resp B/P (MAP) Pulse Ox O2 Delivery O2 Flow Rate FiO2 06/09/17 08:15 98.4 83 17 104/55 (71) 93 06/09/17 00:00 97.6 78 16 115/67 (83) 97 06/08/17 21:15 95 Room Air 06/08/17 20:00 97.6 75 17 106/63 (77) 96 06/08/17 15:37 99.7 87 18 122/56 (78) 99 I/O 06/08/17 06/08/17 06/08/17 06/09/17 06/09/17 06/09/17 07:00 15:00 23:00 07:00 15:00 23:00 Intake Total 480 ml 2982 ml 200 ml Balance 480 ml 2982 ml 200 ml Intake Oral 480 ml 2020 ml 200 ml IV Total 962 ml # Voids 2 6 2 # Bowel Movements 0 2 Result Diagram: 06/09/17 0418 06/09/17 0418 Objective Remarks GENERAL: Patient lying in bed. Appears comfortable. Alert and oriented 3. SKIN: Warm and dry. HEAD: Normocephalic. EYES: No scleral icterus. No injection or drainage. NECK: Supple, trachea midline. No JVD. CARDIOVASCULAR: Regular rate and rhythm without murmurs, gallops, or rubs. RESPIRATORY: Breath sounds equal bilaterally. No accessory muscle use. GASTROINTESTINAL: Abdomen soft, non-tender, nondistended. No rebound or guarding MUSCULOSKELETAL: No cyanosis, or edema. BACK: Nontender without obvious deformity. No CVA tenderness. A/P Assessment and Plan //Upper and lower GI bleed //Anemia. Patient with hematemesis and dark, tarry stools History of GI bleed IV Protonix Octreotide drip Serial H&H Transfuse as needed Gastroenterology consulted, appreciate recommendations = 06/07. Hemoglobin down to 8.8 from 11.2. Continue to monitor every 8 hemoglobin. Appreciate GI assistance. Continue Protonix and octreotide drips. = 06/08. EGD with grade 1 esophageal varices, no signs of bleeding. Patient with continued black tarry bowel movements. Hemoglobin down to 7.8 yesterday evening. Recheck CBC today pending. Appreciate GI assistance. = Hemoglobin stable today 7.5. Unfortunately worsening pancytopenia. //Pancytopenia. = Today with worsening leukopenia 1.8, anemia 7.7, , neutropenia 0.7. We will discontinue trazodone. Consult hematology. Lab workup ordered. Pathology smear review ordered. //Generalized fatigue. Suspect this is in large part secondary to trazodone. Expect to improve off of treatment. // Hepatitis C/cirrhosis She will need outpatient follow-up Appreciate gastroenterology recommendations /Hypocalcemia. = Calcium 7.1. Corrected calcium 8.3. Will order calcium in anticipation of further blood transfusions. = Calcium 7.6. Corrects to normal range. = Corrected calcium within normal limits. //Hypertension Patient currently normotensive Not on any home medications Monitor Clonidine when necessary = 2/. Patient continues normotensive. Continue to monitor. //Depression/PTSD Patient reports that she has not been on any medications however would like to restart them She does not know what medication she was previously on Psychiatry consulted, appreciate recommendations = psych following. disContinue trazodone. Appreciate assistance. //Alcohol abuse [facility] protocol Cessation counseling provided Discharge Planning Continue inpatient treatment. Cam Jones MD Jun 09, 2017 12:56
[2017-06-09] MEDS ORDERED: POTASSIUM CHLORIDE 10 MEQ CONTROLLED RELEASE TAB PO ONE (13:00)
[2017-06-09 13:12] LABS: RETIC % 4.5 % (0.4-3.0)
[2017-06-09 15:36] LABS: IRON (FE) 19 MCG/DL (50-170); TOTAL IRON BINDING CAPACITY 273 MCG/DL (250-450)
--- NOTE | 2017-06-09 15:47 | HHI.GIFU ---
Subjective Remarks Pt resting in bed, main complaint is abdominal distention after drinking contrast for CT scan. Complaining of continued black diarrhea. Reports nausea , denies emesis. (Camille Cisneros) Objective Vitals I&O Vital Signs Date Time Temp Pulse Resp B/P (MAP) Pulse Ox O2 Delivery O2 Flow Rate FiO2 06/09/17 08:15 98.4 83 17 104/55 (71) 93 06/09/17 00:00 97.6 78 16 115/67 (83) 97 06/08/17 21:15 95 Room Air 06/08/17 20:00 97.6 75 17 106/63 (77) 96 I/O 06/08/17 06/08/17 06/08/17 06/09/17 06/09/17 06/09/17 07:00 15:00 23:00 07:00 15:00 23:00 Intake Total 480 ml 2982 ml 200 ml Balance 480 ml 2982 ml 200 ml Intake Oral 480 ml 2020 ml 200 ml IV Total 962 ml # Voids 2 6 2 # Bowel Movements 0 2 Laboratory Laboratory Tests Test 06/08/17 17:40 06/09/17 04:18 White Blood Count 2.4 1.8 Red Blood Count 2.33 2.22 Hemoglobin 8.0 7.7 Hematocrit 23.5 22.3 Mean Corpuscular Volume 100.9 100.5 Mean Corpuscular Hemoglobin 34.5 34.8 Mean Corpuscular Hemoglobin Concent 34.2 34.6 Red Cell Distribution Width 14.1 14.3 Platelet Count 63 57 Mean Platelet Volume 9.2 9.6 Neutrophils (%) (Auto) 36.7 37.4 Lymphocytes (%) (Auto) 52.0 51.7 Monocytes (%) (Auto) 9.0 8.1 Eosinophils (%) (Auto) 1.6 2.4 Basophils (%) (Auto) 0.7 0.4 Neutrophils # (Auto) 0.9 0.7 Lymphocytes # (Auto) 1.2 0.9 Monocytes # (Auto) 0.2 0.1 Eosinophils # (Auto) 0.0 0.0 Basophils # (Auto) 0.0 0.0 CBC Comment AUTO DIFF AUTO DIFF Differential Total Cells Counted 100 100 Neutrophils % (Manual) 32 38 Lymphocytes % 58 49 Monocytes % 8 6 Eosinophils % 1 4 Basophils % 1 1 Neutrophils # (Manual) 0.8 0.7 Differential Comment FINAL DIFF MANUAL FINAL DIFF MANUAL Platelet Estimate LOW LOW Platelet Morphology Comment NORMAL NORMAL Band Neutrophils % 2 Blood Smear Pathologist Review Reticulocyte Count 4.5 Absolute Reticulocyte Count 101.0 Blood Urea Nitrogen 5 Creatinine 0.43 Random Glucose 97 Albumin 2.2 Calcium Level 7.0 Phosphorus Level 2.5 Magnesium Level 2.0 Sodium Level 143 Potassium Level 3.3 Chloride Level 114 Carbon Dioxide Level 23.4 Anion Gap 6 Estimat Glomerular Filtration Rate 157 Iron Level 19 Total Iron Binding Capacity 273 Percent Iron Saturation 7.0 Tumor Marker Alpha Fetoprotein 27.1 Imaging Last Impressions Abdomen/Pelvis CT 06/08/17 0000 Signed Impressions: Service Date/Time: June 00:53 - CONCLUSION: 1. Mild diffuse wall thickening of the entire colon. This could be related to underdistention, related to the portal hypertension, or represent a colitis. 2. Liver demonstrates features diagnostic of cirrhosis. There are features indicative of portal hypertension including recanalized para medical vein, esophageal varices, splenomegaly, and ascites. 3. Cholelithiasis. Rashad Hall MD Physical Exam HEENT: Normocephalic; atraumatic CHEST: CTA CARDIAC: RRR ABDOMEN: Distended, semi-firm, mild diffuse TTP, bowel sounds active EXTREMITIES: No clubbing, cyanosis, or edema. SKIN: Normal; no rash; no jaundice. IT SOFTWARE ENGINEER: No focal deficits; alert and oriented times three. (Camille Cisneros) Assessment and Plan Plan ASSESSMENT - hematemesis, black tarry stool - UGIB could be variceal. EGD 10/2016 showed grade 2 esophageal varices, portal gastropathy - anemia with drop in hgb - hgb dropped from 11.2 to 8.8 overnight. - hx hep c - did interferon for 1 wk in 2001 and nothing since, cites insurance issues 06/08/17 s/p EGD 06/07 found grade 1 esophageal varices, portal gastropathy, duodenitis, small stomach, diverticulum, superficial lineal ulcers, hiatal hernia. no HH today, will rck. no bleeding. (06/09) --> Abdominal distention worse after drinking CT contrast. CT abdomen and pelvis W IV contrast (06/09) noted --> Mild diffuse wall thickening of the entire colon. Could be related to underdistention, related to portal HTN or represent a colitis. Liver demonstrates features diagnostic of cirrhosis. There are features indicative of portal HTN including recanalized para medical vein, esophageal varices, splenomegaly and ascites. Cholelithiasis. Pt complaining of continued diarrhea, 2 BMs documented from today. No repeat H/H since Jun 07. AFP 27.1. PLAN - Stool studies - Colonoscopy in AM - Obtain consent - Mag Citrate prep today - Clear liquids now - NPO after MN - Recheck H/H - Continue Protonix - Further recommendations to follow based on results of above Pt has been seen and examined by myself and Dr. Christensen and this note is written on her behalf (Camille Cisneros) Physician Comments sen, examined agree with above start Flagyl we will start albumin/lasix pancytopenia-consider hematology eval (Daphne Christensen MD) Camille Cisneros Jun 09, 2017 15:47 Daphne Christensen MD Jun 09, 2017 18:36
[2017-06-09 16:00] VITALS: BP 103/61; PULSE 84; RESP 16; TEMP 97.2; O2SAT 92
[2017-06-09] MEDS ORDERED: MAGNESIUM CITRATE SOLN 300 ML BTL PO ONE ×2 (16:00→18:00)
[2017-06-09 16:02] LABS: FOLATE 19.9 NG/ML (3.1-17.5)
[2017-06-09 20:00] VITALS: BP 116/72; PULSE 81; RESP 15; TEMP 98.1; O2SAT 98
[2017-06-09] MEDS: metroNIDAZOLE 500 MG INJ 100 ML IV SCH (20:45)
[2017-06-09] MEDS: ALBUMIN 25% INJ 100 ML IV SCH (20:45)
[2017-06-09] MEDS ORDERED: LACTATED RINGER'S 1000 ML IV PRN (23:45)
[2017-06-09] MEDS ORDERED: POVIDONE IODINE 5% (ANTISEPSIS KIT) 4 APPLICATIONS EACH NARE PRN (23:45)
[2017-06-09] MEDS ORDERED: CHLORHEXIDINE GLUCONATE 2 % 1 PACK (2 CLOTHS) TOPICAL PRN (23:45)
[2017-06-10] VITALS: BP 122/72; PULSE 81; TEMP 97.7; O2SAT 92
[2017-06-10] MEDS: metroNIDAZOLE 500 MG INJ 100 ML IV SCH ×2 (03:57→12:30)
[2017-06-10] MEDS: SODIUM CHLOR 0.9% 1000 ML INJ 1,000 ML IV SCH ×3 (03:58→22:36)
[2017-06-10 04:06] VITALS: BP 121/67; PULSE 86; RESP 16; TEMP 98.1; O2SAT 95
[2017-06-10] MEDS: ALBUMIN 25% INJ 100 ML IV SCH ×2 (07:51→20:42)
[2017-06-10 08:04] LABS: AUTOMATED NEUTROPHIL # 0.9 TH/MM3 (1.8-7.7); BASOPHIL % 0.5 % (0.0-2.0); EOSINOPHIL % 1.8 % (0.0-4.0); HEMATOCRIT 24.1 % (35.0-46.0); HEMOGLOBIN 8.3 GM/DL (11.6-15.3); LYMPH % 44.9 % (9.0-44.0); LYMPHOCYTE # 0.9 TH/MM3 (1.0-4.8); MEAN CELL VOLUME 100.3 FL (80.0-100.0); MEAN CORPUSCULAR HEMOGLOBIN 34.5 PG (27.0-34.0); MEAN CORPUSCULAR HGB CONC 34.4 % (32.0-36.0); MEAN PLATELET VOLUME 9.2 FL (7.0-11.0); MONO % 7.8 % (0.0-8.0); MONOCYTE # 0.2 TH/MM3 (0-0.9); PLATELET COUNT 63 TH/MM3 (150-450); RED BLOOD COUNT 2.41 MIL/MM3 (4.00-5.30); RED CELL DISTRIBUTION WIDTH 14.5 % (11.6-17.2)
[2017-06-10 08:14] VITALS: BP 113/63; PULSE 81; RESP 18; TEMP 98.3; O2SAT 94
[2017-06-10 08:44] LABS: ALBUMIN 2.7 GM/DL (3.4-5.0); BICARBONATE 24.5 MEQ/L (21.0-32.0); CALCIUM 7.4 MG/DL (8.5-10.1); CALCIUM-PROTEIN CORRECTED 7.7 MG/DL (8.5-10.1); CREATININE 0.44 MG/DL (0.50-1.00); TOTAL BILIRUBIN ADULT 1.1 MG/DL (0.2-1.0); TOTAL PROTEIN 6.5 GM/DL (6.4-8.2)
[2017-06-10] MEDS ORDERED: FUROSEMIDE 20 MG/2 ML VIAL IV PUSH SCH (09:00)
[2017-06-10] MEDS ORDERED: VANCOMYCIN 500 MG VIAL (FOR ORAL USE ONLY) PO SCH (09:00)
[2017-06-10] MEDS: SODIUM CHLORIDE 0.9% FLUSH 10 ML FLUSH IV FLUSH SCH ×2 (09:20→20:42)
[2017-06-10] MEDS: PANTOPRAZOLE SODIUM 40 MG VIAL IV PUSH SCH (09:20)
[2017-06-10 10:16] LABS: BANDS 2 % (0-6); BASOPHILS 3 % (0-2); LYMPHOCYTES 42 % (9-44); MONOCYTES 4 % (0-8); PLASMA CELLS 1 % (0-0); POLYS (SEG NEUTROPHILS) 46 % (16-70)
--- NOTE | 2017-06-10 11:12 | HHI.PR ---
Subjective Remarks Follow up for GI bleed, pancytopenia, cirrhosis. Patient is doing well. No acute concerns. She is scheduled for colonoscopy today. Objective Vitals Vital Signs Date Time Temp Pulse Resp B/P (MAP) Pulse Ox O2 Delivery O2 Flow Rate FiO2 06/10/17 08:14 98.3 81 18 113/63 (80) 94 06/10/17 04:06 98.1 86 16 121/67 (85) 95 06/10/17 02:10 95 Room Air 06/10/17 00:00 97.7 81 122/72 (89) 92 06/09/17 20:00 98.1 81 15 116/72 (87) 98 06/09/17 16:00 97.2 84 16 103/61 (75) 92 06/09/17 12:00 98.6 85 17 111/62 (78) 92 I/O 06/09/17 06/09/17 06/09/17 06/10/17 06/10/17 06/10/17 07:00 15:00 23:00 07:00 15:00 23:00 Intake Total 200 ml 345 ml Balance 200 ml 345 ml Intake Oral 200 ml IV Total 345 ml # Voids 2 Result Diagram: 06/10/17 0737 06/10/17 0737 Imaging Last Impressions Abdomen/Pelvis CT 06/08/17 0000 Signed Impressions: Service Date/Time: June 00:53 - CONCLUSION: 1. Mild diffuse wall thickening of the entire colon. This could be related to underdistention, related to the portal hypertension, or represent a colitis. 2. Liver demonstrates features diagnostic of cirrhosis. There are features indicative of portal hypertension including recanalized para medical vein, esophageal varices, splenomegaly, and ascites. 3. Cholelithiasis. Rashad Hall MD Objective Remarks GENERAL: Alert, NAD. SKIN: Warm and dry. HEAD: Normocephalic. EYES: No scleral icterus. No injection or drainage. NECK: Supple, trachea midline. No JVD or lymphadenopathy. CARDIOVASCULAR: Regular rate and rhythm without murmurs, gallops, or rubs. RESPIRATORY: Breath sounds equal bilaterally. No accessory muscle use. GASTROINTESTINAL: Abdomen somewhat firm, non-tender, nondistended. MUSCULOSKELETAL: No cyanosis, or edema. BACK: Nontender without obvious deformity. No CVA tenderness. Procedures EGD 06/07/2017 1. Esophageal variced grade 1 portal gastropathy small stomach fundus diverticulum duodenitis second portion-biopsy superficial linear ulcers antrum-biopsy 2. Retroflexed views revealed a hiatal hernia A/P Problem List: (1) Liver cirrhosis ICD Code: K74.60 - Unspecified cirrhosis of liver (2) Pancytopenia ICD Code: D61.818 - Other pancytopenia (3) GI bleed ICD Code: K92.2 - Gastrointestinal hemorrhage, unspecified Status: Acute Assessment and Plan Ms. Daigle 46-year-old female with a past medical history significant for GI bleed, hypertension, hepatitis C with cirrhosis, depression/PTSD presented to the emergency department on 06/06/2017 with a chief complaint of hematemesis and dark, tarry stools. GI was consulted. - Acute anemia due to GI bleed - Patient received octreotide drip and protonix. - s/p EGD and she is scheduled for Colonoscopy today. - Hgb 8.3 --> 7.7 --> 8.3 today. - C. Diff colitis - Per GI, patient is currently on PO Vancomycin as well as IV Flagyl. - We can likely give patient 14 day course of PO Flagyl 500mg TID. - Pancytopenia - Hematology consulted. Discussed with hematology who will evaluate patient later today. - Likely due to splenomegaly. - Hepatitis C - Liver Cirrhosis - Grade 1 esophageal varices - will start patient on low dose Propranolol 10mg BID - Hypocalcemia - Corrected Calcium 7.7. Full code. Ambulation. Discharge plan: If GI clears patient, she could be discharged over the weekend with PO Flagyl for 14 days total. Damian Hopper DO Jun 10, 2017 11:12 am
--- NOTE | 2017-06-10 11:34 | RADRPT ---
EXAM DATE/TIME: 06/10/2017 11:18 [place] COMPARISON: No previous studies available for comparison. INDICATIONS : Diffuse abdominal pain MEDICAL HISTORY : Hypertension. Gastroesophageal reflux disease. Hepatitis C. SURGICAL HISTORY : None. ENCOUNTER: Initial ACUITY: 2 days PAIN SCORE: 6/10 LOCATION: Abdomen FINDINGS: Supine and upright views of the abdomen were performed. The abdominal bowel gas pattern is normal. No air fluid levels are seen. No abnormal masses, calcifications, or organomegaly is seen. The visu alized lower lungs are clear. No evidence of free intraperitoneal gas. The osseous structures are u nremarkable. CONCLUSION: Negative Lele Sotelo MD FACR on June 10, 2017 at 11:32 Board Certified Radiologist. This report was verified electronically.
[2017-06-10] MEDS ORDERED: LIDOCAINE HCL 1% PF 5 ML SYRINGE OTHER ONE (12:00)
[2017-06-10] MEDS ORDERED: PROPOFOL 200 MG/20 ML AMP IV ONE (12:00)
[2017-06-10 12:10] VITALS: BP 122/71; PULSE 76; RESP 18; TEMP 97.9; O2SAT 96
[2017-06-10] MEDS: VANCOMYCIN PO SCH ×2 (13:00→18:00)
[2017-06-10 16:43] VITALS: BP 119/71; PULSE 85; RESP 17; TEMP 98.7; O2SAT 95
--- NOTE | 2017-06-10 17:12 | GIPROC ---
[facility] [address] [facility]. [facility], [id number] COLONOSCOPY PROCEDURE REPORT EXAM DATE: 06/10/2017 PATIENT NAME: Vaibhav Daigle MR #: [id number] BIRTHDATE: 1970 ENDOSCOPIST: Daphne Christensen MD ORDER #: [id number] FOOD PROCESSING PLANT MANAGER: Eugenia Tejeda and Lorri Jones STATUS: inpatient INDICATIONS: The patient is a 46 yr old female here for a colonoscopy due to diarrhea PROCEDURE PERFORMED: Colonoscopy with biopsy MEDICATIONS: None and Per Anesthesia. PREP QUALITY: fair PREP TYPE:Other: ESTIMATED BLOOD LOSS: None CONSENT: The patient understands the risks and benefits of the procedure and understands that these risks include, but are not limited to: sedation, allergic reaction, infection, perforation and/or bleeding. Alternative means of evaluation and treatment include, among others: physical exam, x-rays, and/or surgical intervention. The patient elects to proceed with this endoscopic procedure. medical equipment was checked for proper function. Hand hygiene and appropriate measures for infection prevention was taken. After the risks, benefits and alternatives of the procedure were thoroughly explained, Informed consent was verified, confirmed and timeout was successfully executed by the treatment team. A digital exam revealed external hemorrhoids The Pentax [id number] endoscope was introduced through the anus and advanced to the cecum, which was identified by both the appendix and ileocecal valve. The instrument was then slowly withdrawn as the colon was fully examined. COLON FINDINGS: Diverticulosis sigmoid,descending random biopsy descending. Retroflexed views revealed internal hemorrhoids and Retroflexed views revealed small internal hemorrhoids The scope was then completely withdrawn from the patient and the procedure terminated. PROCEDURE WITHDRAWAL TIME:6minutes ADVERSE EVENTS: There were no complications. IMPRESSIONS: 1. Diverticulosis sigmoid,descending random biopsy descending 2. Retroflexed views revealed internal hemorrhoids 3. Retroflexed views revealed small internal hemorrhoids 4. Revealed external hemorrhoids RECOMMENDATIONS: 1. Await biopsy results. Biopsy results will not be ready for 7-10 days. If you don't hear from us in two weeks, call our office for results. 2. Probiotics from any [facility] or health food store 3. Yearly rectal exams RECALL: Return 5 years Colonoscopy Daphne Christensen MD eSigned: Daphne Christensen MD 06/10/2017 5:11 PM cc:
[2017-06-10 20:00] VITALS: BP_SYST 131; BP_DIAS 71; BP_DIAS 77; PULSE 78; RESP 18; TEMP 98.8; O2SAT 97
[2017-06-10] MEDS: PROPRANOLOL HCL 10 MG TAB PO SCH (20:43)
[2017-06-10] MEDS: VANCOMYCIN 25 MG/ML SUSP 100 ML BOTTLE PO SCH (21:00)
[2017-06-10] MEDS: FERROUS SULFATE 325 MG (65 MG ELEMENTAL IRON) TAB PO SCH (22:28)
[2017-06-10] MEDS: FUROSEMIDE 20 MG/2 ML VIAL IV PUSH SCH (22:35)
--- NOTE | 2017-06-10 22:42 | MB ---
cc: CLARISSA CRUZ MD DATE OF CONSULTATION: 06/10/2017. REASON FOR CONSULTATION: Pancytopenia. TIME OF CONSULTATION: 06:15 p.m. CHIEF COMPLAINT: Ms. Daigle reports abdominal bloating. She reports abdominal pain. She reports having had a 3-week history of on and off dark blood in her stool as well as vomiting associated with hemoptysis. HISTORY OF PRESENT ILLNESS: Ms. Daigle is a 46-year-old female with a history of alcoholism, hepatitis C and hepatic cirrhosis as a consequence to her hepatic cirrhosis. She has significant splenomegaly. She is homeless and has no family who is sympathetic to her. The patient reports having been in and out of [facility] and recently while in intermediate developed abdominal pain, abdominal distension and GI bleeding. After she was released from intermediate, she returned to her homeless long term / camp. While there, she noticed continued symptoms of GI bleeding including a blood in her vomitus which she describes as a bright red and also bleeding with the stool which she described as being dark and occasionally tinged with red blood. She presented to [facility] on 06/06/2079 with the above symptoms. She was noted to be pancytopenic with a significant anemia. Her hemoglobin had declined from 11 gm/dL at time of presentation down to 7.8 gm/dL on 06/07/2017. She underwent EGD and colonoscopy earlier today and was noted on EGD to have gastric ulcers which are superficial. The colonoscopy revealed colitis. She was noted on stool C diff studies. She was initiated on IV metronidazole which has now been changed to oral vancomycin. The hematology service has been asked to see her for further recommendations regarding her thrombocytopenia, anemia and leukopenia. PAST MEDICAL HISTORY: 1. Hepatitis c. 2. Alcoholism. 3. Hepatic cirrhosis. 4. GI bleeding. PAST SURGICAL HISTORY: She reports having had incision and drainage of a MRSA infection on her right hand. She denies other surgical interventions other than the EGD and colonoscopy done today. FAMILY HISTORY: Noncontributory. She was adopted so she never new her biologic family. SOCIAL HISTORY: She is homeless, she has never worked. She has two children. She tells me she is estranged from her family. ALLERGIES: Amoxicillin. CURRENT INPATIENT MEDICATIONS: 1. Vancomycin 125 milligrams p.o. four times a day. 2. Ringer's lactate. 3. Normal saline 100 cc/hour. 4. Flumazenil 0.2 milligrams IV q. 1 minute as needed. 5. Clonidine 0.1 milligram p.o. q. 6 hours. 6. Dulcolax 10 milligrams per rectum as needed for constipation. 7. Lactulose 30 mL p.o. daily. 8. Lorazepam 1 milligrams p.o. q. 4 hours as needed for CIWA scale protocol. 9. Oxycodone 5 milligrams p.o. q. 4 hours as needed. 10. Propranolol 10 milligrams p.o. q. 12 hours. 11. Trazodone 100 milligrams p.o. at bedtime. REVIEW OF SYSTEMS: A thirteen point review of systems was obtained and the following are the pertinent positives: CONSTITUTIONAL: The patient reports fatigue, weakness, pain in the abdomen, distension, nausea, vomiting associated with hematemesis. GASTROINTESTINAL: Diarrhea associated with blood in the stools. : No complaints. ASSISTANT DIRECTOR OF NURSING: No complaints such as focal sensory or motor deficits. SKIN: No complaints. PHYSICAL EXAMINATION: VITAL SIGNS: Temperature 98 degrees Fahrenheit, heart rate 78 beats per minute, respiratory rate 16, blood pressure 96% on room air. Blood pressure was 114/71. GENERAL PHYSICAL APPEARANCE: Ms. Daigle is a disheveled-appearing middle-aged female, she appears to be no acute distress. HEAD, EYES, EARS, NOSE, THROAT: Head atraumatic, normocephalic. Conjunctivae are pale. The sclerae are anicteric. ORAL EXAM: Poor dental hygiene. NECK EXAM: No cervical lymphadenopathy. No supraclavicular lymphadenopathy. RESPIRATORY EXAM: Good air movement bilaterally with no added breath sounds. CARDIOVASCULAR EXAM: Regular rate and rhythm. S1, S2. No obvious murmurs, rubs or gallops. ABDOMINAL EXAM: The belly is distended. Splenomegaly is palpable 3 cm below the costal margin and lower on inspiration. Hepatomegaly is not noted. Free fluid in the abdomen is noted. Positive bowel sounds. LOWER EXTREMITIES: No pretibial edema or calf tenderness. ASSISTANT DIRECTOR OF NURSING: No focal sensory or motor deficits. LABORATORY FINDINGS: C. difficile for stool toxin was positive on 06/09/2017. CBC dated 06/10/2017: WBC count 2, hemoglobin 8.3 gm/dL, hematocrit 24%, MCV of 100, platelet count 63,000, absolute neutrophil count is 0.9. Chemistries: Sodium 146, potassium 3.5, chloride 116, bicarb 24, BUN 5, creatinine 0.44, EGFR 153, random glucose is 103, calcium is 7.4, corrected calcium 7.7, ferritin level 56, total bilirubin sewn 0.1, AST 56, ALT 24, albumin is 2.7, total protein is 6.5, vitamin B12 level is 811, folic acid is 19.9. IMAGING STUDIES: CT scan of the abdomen and pelvis dated 06/08/2017 indicates: 1. Hepatic cirrhosis, splenomegaly, features consistent with portal hypertension, i.e. esophageal varices, ascites. Cholelithiasis. Ms. Daigle is an unfortunate 46-year-old female. She is homeless. She has been in and out of intermediate. She has hepatitis C, history of alcoholism and hepatic cirrhosis. She presented to the hospital with a subacute history of GI bleeding. She tells me she was "bleeding at both ends", which she describes as blood in her vomitus and blood in her stools. She also reports abdominal distention and pain. Upon presentation to this hospital, she underwent imaging studies which revealed findings consistent with portal hypertension, hepatic cirrhosis and splenomegaly. She was found to be C. difficile positive. Her hemoglobin and hematocrit dropped significantly after admission from a presenting level of 11.2 grams/dL down to a therese of 7.6 grams/dL. She has not required blood transfusions as her hemoglobin and hematocrit have spontaneously improved. She is noted to be pancytopenic. Her cytopenias are chronic. The etiology of her cytopenias is splenomegaly with resultant splenic sequestration of the WBCs and platelets and ongoing GI bleeding, which has resulted in the anemia. RECOMMENDATIONS: 1. Initiate oral iron replacement therapy. This will help improve her anemia. 2. Thrombocytopenia and leukopenia will be chronic and will persist given her splenomegaly. Unfortunately given her cirrhotic liver and ongoing alcohol consumption as well as persistent hepatitis C infection, I suspect her cirrhosis will worsen and with that her splenomegaly will worsen. The thrombocytopenia will inevitably progress. I have talked to the patient about outpatient followup, which I will attempt to schedule. From a hematologic standpoint, there are no additional recommendations at this time other than initiating oral iron replacement therapy. I do not recommend obtaining a bone marrow biopsy as the likelihood of an underlying primary bone marrow disorder is highly unlikely. MD JULIET Madrid /6:47 PM /10:09 PM
[2017-06-11] VITALS: BP 121/66; PULSE 80; RESP 18; TEMP 97.6; O2SAT 96
[2017-06-11] MEDS: CHLORHEXIDINE GLUCONATE 2 % 1 PACK (2 CLOTHS) TOP SCH (04:00)
[2017-06-11 05:21] VITALS: BP 117/64; PULSE 79; RESP 18; TEMP 98.2; O2SAT 93
[2017-06-11 08:00] VITALS: BP 111/61; PULSE 79; RESP 16; TEMP 98.1; O2SAT 92
[2017-06-11] MEDS: ALBUMIN 25% INJ 100 ML IV SCH (08:28)
[2017-06-11] MEDS: PROPRANOLOL HCL 10 MG TAB PO SCH (08:29)
[2017-06-11] MEDS: VANCOMYCIN 25 MG/ML SUSP 100 ML BOTTLE PO SCH ×2 (08:29→12:09)
[2017-06-11] MEDS: SODIUM CHLORIDE 0.9% FLUSH 10 ML FLUSH IV FLUSH SCH (08:29)
[2017-06-11] MEDS: SODIUM CHLOR 0.9% 1000 ML INJ 1,000 ML IV SCH (08:30)
[2017-06-11] MEDS: FERROUS SULFATE 325 MG (65 MG ELEMENTAL IRON) TAB PO SCH (08:30)
[2017-06-11] MEDS: FUROSEMIDE 20 MG/2 ML VIAL IV PUSH SCH (08:30)
[2017-06-11] MEDS: PANTOPRAZOLE SODIUM 40 MG VIAL IV PUSH SCH (08:30)
[2017-06-11] MEDS ORDERED: PANT40TA3 PO (10:58)
[2017-06-11] MEDS ORDERED: FURO1TAB62 PO (10:58)
[2017-06-11] MEDS ORDERED: FERR325T20 PO (10:58)
[2017-06-11] MEDS ORDERED: PROP10TA6 PO (10:58)
--- NOTE | 2017-06-11 10:59 | HHI.DS ---
Discharge Summary Admission Date Jun 06, 2017 at 19:05 Discharge Date: Jun 11, 2017 Admitting Diagnosis GI bleed, hx of cirrhosis, alcohol (1) Liver cirrhosis ICD Code: K74.60 - Unspecified cirrhosis of liver (2) Pancytopenia ICD Code: D61.818 - Other pancytopenia (3) GI bleed ICD Code: K92.2 - Gastrointestinal hemorrhage, unspecified Status: Acute Procedures EGD 06/07/2017 1. Esophageal variced grade 1 portal gastropathy small stomach fundus diverticulum duodenitis second portion-biopsy superficial linear ulcers antrum-biopsy 2. Retroflexed views revealed a hiatal hernia Brief History - From Admission 46-year-old female with a past medical history significant for GI bleed, hypertension, hepatitis C with cirrhosis, depression/PTSD presents to the emergency department with a chief complaint of hematemesis and dark, tarry stools. The patient reports that she started throwing up both the dark and bright red blood earlier today. She also states she's had a 2 to three-day history of dark, tarry stools. She has history of a GI bleed, last in November. She also complains of right upper quadrant and epigastric pain. She denies any associated weakness or shortness of breath. Denies chest pain. Denies fever/ chills. CBC/BMP: 06/10/17 0737 06/10/17 0737 Significant Findings Laboratory Tests Test 06/08/17 11:23 06/08/17 17:40 06/09/17 04:18 06/09/17 20:10 Total Protein 5.6 GM/DL (6.4-8.2) Albumin 2.1 GM/DL (3.4-5.0) 2.2 GM/DL (3.4-5.0) Calcium Level 7.6 MG/DL (8.5-10.1) 7.0 MG/DL (8.5-10.1) Aspartate Amino Transf (AST/SGOT) 52 U/L (15-37) Chloride Level 113 MEQ/L (98-107) 114 MEQ/L (98-107) White Blood Count 2.4 TH/MM3 (4.0-11.0) 1.8 TH/MM3 (4.0-11.0) Red Blood Count 2.33 MIL/MM3 (4.00-5.30) 2.22 MIL/MM3 (4.00-5.30) Hemoglobin 8.0 GM/DL (11.6-15.3) 7.7 GM/DL (11.6-15.3) Hematocrit 23.5 % (35.0-46.0) 22.3 % (35.0-46.0) Mean Corpuscular Volume 100.9 FL (80.0-100.0) 100.5 FL (80.0-100.0) Mean Corpuscular Hemoglobin 34.5 PG (27.0-34.0) 34.8 PG (27.0-34.0) Platelet Count 63 TH/MM3 (150-450) 57 TH/MM3 (150-450) Lymphocytes (%) (Auto) 52.0 % (9.0-44.0) 51.7 % (9.0-44.0) Monocytes (%) (Auto) 9.0 % (0.0-8.0) 8.1 % (0.0-8.0) Neutrophils # (Auto) 0.9 TH/MM3 (1.8-7.7) 0.7 TH/MM3 (1.8-7.7) Lymphocytes % 58 % (9-44) 49 % (9-44) Neutrophils # (Manual) 0.8 TH/MM3 (1.8-7.7) 0.7 TH/MM3 (1.8-7.7) Platelet Estimate LOW (NORMAL) LOW (NORMAL) Lymphocytes # (Auto) 0.9 TH/MM3 (1.0-4.8) Reticulocyte Count 4.5 % (0.4-3.0) Blood Urea Nitrogen 5 MG/DL (7-18) Creatinine 0.43 MG/DL (0.50-1.00) Potassium Level 3.3 MEQ/L (3.5-5.1) Iron Level 19 MCG/DL (50-170) Percent Iron Saturation 7.0 % (20-50) Tumor Marker Alpha Fetoprotein 27.1 NG/ML (0.5-8.0) Folate 19.9 NG/ML (3.1-17.5) Stool C. difficile Toxin (PCR) POSITIVE (NEGATIVE) Test 06/10/17 07:37 White Blood Count 2.0 TH/MM3 (4.0-11.0) Red Blood Count 2.41 MIL/MM3 (4.00-5.30) Hemoglobin 8.3 GM/DL (11.6-15.3) Hematocrit 24.1 % (35.0-46.0) Mean Corpuscular Volume 100.3 FL (80.0-100.0) Mean Corpuscular Hemoglobin 34.5 PG (27.0-34.0) Platelet Count 63 TH/MM3 (150-450) Lymphocytes (%) (Auto) 44.9 % (9.0-44.0) Neutrophils # (Auto) 0.9 TH/MM3 (1.8-7.7) Lymphocytes # (Auto) 0.9 TH/MM3 (1.0-4.8) Basophils % 3 % (0-2) Neutrophils # (Manual) 1.0 TH/MM3 (1.8-7.7) Plasma Cells 1 % (0-0) Platelet Estimate LOW (NORMAL) Blood Urea Nitrogen 5 MG/DL (7-18) Creatinine 0.44 MG/DL (0.50-1.00) Albumin 2.7 GM/DL (3.4-5.0) Calcium Level 7.4 MG/DL (8.5-10.1) Aspartate Amino Transf (AST/SGOT) 56 U/L (15-37) Total Bilirubin 1.1 MG/DL (0.2-1.0) Sodium Level 146 MEQ/L (136-145) Chloride Level 116 MEQ/L (98-107) Protein Corrected Calcium 7.7 MG/DL (8.5-10.1) PE at Discharge GENERAL: Alert, NAD. SKIN: Warm and dry. HEAD: Normocephalic. EYES: No scleral icterus. No injection or drainage. NECK: Supple, trachea midline. No JVD or lymphadenopathy. CARDIOVASCULAR: Regular rate and rhythm without murmurs, gallops, or rubs. RESPIRATORY: Breath sounds equal bilaterally. No accessory muscle use. GASTROINTESTINAL: Abdomen somewhat firm, non-tender, nondistended. MUSCULOSKELETAL: No cyanosis, or edema. BACK: Nontender without obvious deformity. No CVA tenderness. Pt update on day of discharge Less diarrhea no fever or chills , no abd pain / Eating well Hospital Course Ms. Daigle 46-year-old female with a past medical history significant for GI bleed, hypertension, hepatitis C with cirrhosis, depression/PTSD presented to the emergency department on 06/06/2017 with a chief complaint of hematemesis and dark, tarry stools. GI was consulted. - Acute anemia due to GI bleed - Patient received octreotide drip and protonix. - s/p EGD and she is scheduled for Colonoscopy today. - Hgb 8.3 --> 7.7 --> 8.3 today. - C. Diff colitis - Per GI, patient is currently on PO Vancomycin as well as IV Flagyl. - We can likely give patient 14 day course of PO Flagyl 500mg TID. - Pancytopenia - Hematology consulted. Discussed with hematology who will evaluate patient later today. - Likely due to splenomegaly. - Hepatitis C - Liver Cirrhosis - Grade 1 esophageal varices - will start patient on low dose Propranolol 10mg BID - Hypocalcemia - Corrected Calcium 7.7. Full code. Ambulation. Improved. Discharged in stable condition to follow up as OP with PCP and consultants. Also discussed with the case management for DC plan will have meds at [place] for patient. Pt Condition on Discharge: Stable Discharge Disposition: Discharge Home Discharge Time: > 30 minutes Discharge Instructions DIET: Follow Instructions for: Heart Healthy Diet Activities you can perform: Regular-No Restrictions Follow up Referrals: Gastroenterology - 2 Weeks PCP Follow-up - 2-3 Days New Medications: Furosemide (Lasix) 20 Mg Tab 20 MG PO DAILY for Blood Pressure Management, #30 TAB 0 Refills Metronidazole (Flagyl) 500 Mg Tab 500 MG PO TID for Infection for 12 Days, TAB 0 Refills Pantoprazole (Pantoprazole) 40 Mg Tab 40 MG PO DAILY for Reflux, #30 TAB 0 Refills Ferrous Sulfate (Ferosul) 325 Mg (65 Mg Iron) Tablet 325 MG PO BID for iron deficiency , #60 MG Propranolol (Propranolol) 10 Mg Tab 10 MG PO Q12HR for Blood Pressure Management, #60 TAB Continued Medications: Dicyclomine (Bentyl) 10 Mg Cap 10 MG PO TID PRN for Bowel Management, #10 CAP 0 Refills Hydrocodone-Acetaminophen (Lortab) 5-325 Mg Tab 1-2 TAB PO Q6H PRN for PAIN SCALE 6 TO 10, #12 TAB 0 Refills Denice Grier MD Jun 11, 2017 10:59
[2017-06-11] MEDS ORDERED: VANC500I3 PO (11:04)
[2017-06-11] MEDS ORDERED: METR-1 PO (11:07)
[2017-06-11 11:57] VITALS: BP 130/70; PULSE 70; RESP 18; TEMP 99.6; O2SAT 94
[2017-06-11] MEDS: ONDANSETRON HCL 4 MG/2 ML VIAL IVP PRN (12:09)
--- NOTE | 2017-06-11 14:03 | HHI.GIFU ---
Subjective Remarks Pt resting in bed, awaiting the nurse to bring her discharge paperwork. States some abdominal distention today, but overall feeling well. Denies abdominal pain, nausea, vomiting. Tolerating diet. BMs formed. (Camille Cisneros) Objective Vitals I&O Vital Signs Date Time Temp Pulse Resp B/P (MAP) Pulse Ox O2 Delivery O2 Flow Rate FiO2 06/11/17 11:57 99.6 70 18 130/70 (90) 94 06/11/17 08:49 92 Room Air 06/11/17 08:00 98.1 79 16 111/61 (78) 92 06/11/17 05:21 98.2 79 18 117/64 (81) 93 06/11/17 00:00 97.6 80 18 121/66 (84) 96 06/10/17 21:00 95 Room Air 06/10/17 20:00 98.8 78 18 131/71 (91) 97 06/10/17 20:00 98.8 78 18 131/77 (95) 97 06/10/17 17:28 81 16 114/71 (85) 96 06/10/17 17:12 97.9 78 16 113/73 (86) 100 06/10/17 16:43 98.7 85 17 119/71 (87) 95 I/O 06/10/17 06/10/17 06/10/17 06/11/17 06/11/17 06/11/17 07:00 15:00 23:00 07:00 15:00 23:00 Intake Total 345 ml 200 ml 300 ml 1500 ml Balance 345 ml 200 ml 300 ml 1500 ml IV Total 345 ml 200 ml 1500 ml Other 300 ml # Voids 3 Laboratory Date/Time Source Procedure Growth Status 06/09/17 20:10 Stool Stool - Final NO ENTERIC PATHOGENS DETECTED BY PCR... Complete Imaging Last Impressions Abdomen X-Ray 06/10/17 0000 Signed Impressions: Service Date/Time: Saturday, June 10, 2017 11:18 - CONCLUSION: Negative Lele Sotelo MD FACR Abdomen/Pelvis CT 06/08/17 0000 Signed Impressions: Service Date/Time: June 00:53 - CONCLUSION: 1. Mild diffuse wall thickening of the entire colon. This could be related to underdistention, related to the portal hypertension, or represent a colitis. 2. Liver demonstrates features diagnostic of cirrhosis. There are features indicative of portal hypertension including recanalized para medical vein, esophageal varices, splenomegaly, and ascites. 3. Cholelithiasis. Rashad Hall MD Physical Exam HEENT: Normocephalic; atraumatic CHEST: CTA CARDIAC: RRR ABDOMEN: Distended, soft,nontender, bowel sounds active EXTREMITIES: No clubbing, cyanosis, or edema. SKIN: Normal; no rash; no jaundice. POWER PLANT SUPERINTENDENT: No focal deficits; alert and oriented times three. (Camille Cisneros) Assessment and Plan Plan ASSESSMENT - hematemesis, black tarry stool - UGIB could be variceal. EGD 10/2016 showed grade 2 esophageal varices, portal gastropathy - anemia with drop in hgb - hgb dropped from 11.2 to 8.8 overnight. - hx hep c - did interferon for 1 wk in 2001 and nothing since, cites insurance issues 06/08/17 s/p EGD 06/07 found grade 1 esophageal varices, portal gastropathy, duodenitis, small stomach, diverticulum, superficial lineal ulcers, hiatal hernia. no HH today, will rck. no bleeding. (06/09) --> Abdominal distention worse after drinking CT contrast. CT abdomen and pelvis W IV contrast (06/09) noted --> Mild diffuse wall thickening of the entire colon. Could be related to underdistention, related to portal HTN or represent a colitis. Liver demonstrates features diagnostic of cirrhosis. There are features indicative of portal HTN including recanalized para medical vein, esophageal varices, splenomegaly and ascites. Cholelithiasis. Pt complaining of continued diarrhea, 2 BMs documented from today. No repeat H/H since Jun 07. AFP 27.1. (06/11) --> S/P colonoscopy yesterday --> Diverticulosis in the sigmoid and descending colon. Random biopsy. Internal and external hemorrhoids. Recommended probiotics. Pt is planned for discharge today. Only GI complaint is some abdominal distention, however she is tolerating regular diet. Denies nausea, vomiting, abdominal pain. BMs are formed. Pathology from EGD is back --> (small intestine) mild acute duodenitis (stomach antrum,body) mild chronic active gastritis PLAN - Colon biopsy pending - Continue oral Vanco for C. Diff positive stool - Continue probiotics - Continue Lasix - Continue Inderal - Continue Protonix - Continue Lactulose - Pt being discharged today per attending - Please follow up with GI in office in 1-2 weeks Pt has been seen and examined by myself and Dr. Alvarado and this note is written on his behalf (Camille Cisneros) Plan Agree with above note, follow up as an outpatient, patient being discharged today (Candelario Alvarado MD) Camille Cisneros Jun 11, 2017 14:02 Candelario Alvarado MD Jun 11, 2017 15:52
--- NOTE | 2017-06-16 08:11 | PQ ---
Physician Query Response Document PATIENT: PATRICIA BORJA : 1970 ADMIT DATE: 06/06/2017 7:05 PM DISCH DATE: 06/11/2017 3:11 PM RESPONDING PROVIDER #: [email or web address] QUERY TEXT: Anemia Type Anemia is documented in the Medical Record. Please specify the cause (includes suspected or probable cause) Such as: -- Due to acute blood loss -- Due to chronic blood loss -- Due to iron deficiency -- Due to postoperative blood loss -- Due to chronic disease -- Other, please specify The patient's Clinical Indicators include: per GI Consult dated 06-07-17 : " - anemia with drop in hgb - hgb dropped from 11.2 to 8.8 overnight. " Query created by: Floresita Rivas on 06/10/2017 11:35 AM RESPONSE TEXT: Anemia due to acute GI blood loss. Electronically signed by: Howie Hopper DO 06/16/2017 8:07 AM
== END 2017-06-11 15:11 | disposition home or self-care (01) | DRG 378 ==
LOC: NEPE 15:21 → NEDA 19:05 → N06A 21:21 → N05A 06-10 02:04
PROVIDERS: ADMIT Hospitalist; ATTEND Hospitalist
PROC: 0DB78ZX Excision of Stomach, Pylorus, Via Natural or Artificial Opening Endoscopic, Diagnostic (ICD-10-PCS; 2017-06-07)
PROC: 0DB98ZX Excision of Duodenum, Via Natural or Artificial Opening Endoscopic, Diagnostic (ICD-10-PCS; principal; 2017-06-07 15:49)
PROC: 0DBM8ZX Excision of Descending Colon, Via Natural or Artificial Opening Endoscopic, Diagnostic (ICD-10-PCS; 2017-06-10)
DX: K92.2 Gastrointestinal hemorrhage, unspecified (principal); D62 Acute posthemorrhagic anemia; D61.818 Other pancytopenia; K76.6 Portal hypertension; A04.72 Enterocolitis due to Clostridium difficile, not specified as recurrent; R16.1 Splenomegaly, not elsewhere classified; E83.51 Hypocalcemia; I10 Essential (primary) hypertension; M19.90 Unspecified osteoarthritis, unspecified site; F43.23 Adjustment disorder with mixed anxiety and depressed mood; B19.20 Unspecified viral hepatitis C without hepatic coma; F43.10 Post-traumatic stress disorder, unspecified; F17.210 Nicotine dependence, cigarettes, uncomplicated; K92.1 Melena; F10.20 Alcohol dependence, uncomplicated; K25.9 Gastric ulcer, unspecified as acute or chronic, without hemorrhage or perforation; K44.9 Diaphragmatic hernia without obstruction or gangrene; K57.30 Diverticulosis of large intestine without perforation or abscess without bleeding; K29.80 Duodenitis without bleeding; G47.00 Insomnia, unspecified; K64.4 Residual hemorrhoidal skin tags; K64.8 Other hemorrhoids; K80.20 Calculus of gallbladder without cholecystitis without obstruction; K70.31 Alcoholic cirrhosis of liver with ascites; K31.89 Other diseases of stomach and duodenum; K29.50 Unspecified chronic gastritis without bleeding; I85.00 Esophageal varices without bleeding; Z86.14 Personal history of Methicillin resistant Staphylococcus aureus infection; Z59.0 Homelessness
CPT/HCPCS: 74019; 74177; 80053; 80069; 81001; 82105; 82550; 82607; 82728; 82746; 83540; 83550; 83735; 85007; 85018; 85025; 85027; 85044; 85060; 85384; 85610; 85730; 86850; 86900; 86901; 87493; 87506; 87641; 88305; 88312; 93005; 96365; 96375; C9113; J0610; J1940; J2354; J2405; J3480; J7030; J7040; P9047; Q9963; Q9967